=== PATIENT | female | born 1955 | race Caucasian/White ===

== ENCOUNTER 2017-05-31 17:39 | Inpatient (IN) ==
[2017-05-31] MEDS ORDERED: 0.9 % Sodium Chloride 250 ML ONE (19:49)
--- NOTE | 2017-05-31 19:57 | Internal Med History&Physical ---
<Flako Barbour - Last Filed: 05/31/17 23:44> Date of Encounter: 05/31/17 Time of Encounter: 19:52 Assessment and Plan (1) Atrial fibrillation with RVR Current visit: Yes Status: Acute The patient is in paroxysmal A. fib chronically. The patient is on Xarelto on a daily basis. Patient is in rapid ventricular rhythm upon arrival to the emergency department according to records as well as here in the ICU. Her heart rate is in the 150s to 120s. She is currently on a Cardizem drip at 5. We will continue to titrate accordingly with blood pressure control. The patient denies any chest pain or any other complaints associated with it. We will likely have cardiology see the patient for possible adjustment of medications. In addition we will schedule echocardiogram. We will continue the patient on Xarelto. (2) Sepsis Current visit: Yes Status: Acute Likely associated with right lower extremity cellulitis. The patient did have an elevated lactate at 3.4. She was administered at 3.5 L of normal saline at outlying facility. The patient was started on aztreonam as well as vancomycin which she will continue to receive here in the ICU. Qualifiers: Sepsis type: sepsis due to unspecified organism Qualified Code(s): A41.9 - Sepsis, unspecified organism (3) Cellulitis of right lower extremity Current visit: Yes Status: Acute The patient does have psoriasis history. This may be a contributor factor of why the patient developed cellulitis the right lower extremity. Despite patient being on Xarelto, we will schedule a right lower extremity Doppler for evaluation. (4) Acute exacerbation of CHF (congestive heart failure) Current visit: Yes Status: Acute Likely associated with patient's atrial fibrillation. The patient was given 3.5 L of normal saline outlying facility. Her respiratory status has remained stable upon arrival to [facility] ICU. We will continue to monitor this. We will schedule an echocardiogram to be performed to evaluate patient's EF. Qualifiers: Congestive heart failure type: unspecified Qualified Code(s): I50.9 - Heart failure, unspecified (5) COPD (chronic obstructive pulmonary disease) Current visit: Yes Status: Chronic Qualifiers: COPD type: unspecified COPD Qualified Code(s): J44.9 - Chronic obstructive pulmonary disease, unspecified (6) Asthma Current visit: Yes Status: Chronic Qualifiers: Asthma severity: unspecified severity Asthma persistence: unspecified Asthma complication type: uncomplicated Qualified Code(s): J45.909 - Unspecified asthma, uncomplicated (7) Obstructive sleep apnea Current visit: Yes Status: Chronic The patient wears CPAP at night intermittently. We will order for her here at [facility] ICU. (8) History of polycythemia Current visit: Yes Status: Chronic (9) HTN (hypertension) Current visit: Yes Status: Chronic Qualifiers: Hypertension type: essential hypertension Qualified Code(s): I10 - Essential (primary) hypertension Internal Medicine - H&P: HPI Chief complaint: Dyspnea, ill-feeling Admitted From: Hospital to Hospital Transfer Plans for Post Hospital Care: Home History of present illness: Ms. Leyva is a 61 year old female with past medical history of atrial fibrillation with a pacemaker due to episodes of bradycardia that her intermittent. The patient states that she has been experiencing upper respiratory like infection symptoms over the past 2 weeks. The patient was recently finished antibiotic for bilateral ear infections. The patient states that over the course of the past 24 hours she is began complaining of bilateral lower extremity pain and swelling associated with this dyspnea. In addition the patient was also noted to be complaining of lumbar back pain. The patient states that she has been experiencing the swelling over the course of the past 24-48 hours. She denies any difficulty breathing at this time but states that when she first decided to go to the emergency department she was feeling very short of breath. The patient denied any chest pain, abdominal pain. The patient has been taking her medications as prescribed to include Cardizem, metoprolol. The patient was worked up at [place] emergency department with concern for possible cellulitis of the right lower extremity as well as back pain and dyspnea. Lab work demonstrated an elevated BNP, heart rate was noted to be in atrial fibrillation with RVR. The patient was administered 2 boluses of 20 mg IV Cardizem and placed on a Cardizem drip at 5 mg. In addition the patient was given vancomycin and aztreonam for concern for cellulitis. The patient was also administered 3.5 L of IV fluids prior to arrival to [facility] ICU. The patient was evaluated at [place] and decided to be sent to the ICU with [facility]. The patient did have an elevated lactic acid of 3.4 and a BNP of 793. The patient is in no respiratory distress at this time. She is resting comfortably in the bed in answering all questions appropriately. The patient is complaining of some tightness in her chest associated with similar complaint of asthma that she has previously been diagnosed with. The patient also has an elevation of troponin at 0.04 per laboratory findings. CTA of the patient's chest demonstrated no pulmonary embolus. EKG from outlying facility revealed atrial fibrillation with RVR. No ST elevation or ST depression noted. Upon arrival to the ICU and the patient's heart rate is jumping from the 150s to the 1 teens. She was not on a Cardizem drip upon arrival to the emergency department. Patient denies any other complaints at this time. Past Med Surg Social Fam HX - Past Medical History Attestation: Yes The following information was validated with the patient. Source: patient, old records reviewed Medical history: arthritis, asthma, atrial fibrillation (Anticoagulation on xarelto), COPD, diabetes, hyperlipidemia, hypertension, other (Polycythemia, obstructive sleep apnea with CPAP, psoriasis, recurrent UTI, obesity) Psychiatric history: depression - Past Surgical History Surgical History: colostomy (For recurrent diverticular disease and diverticular abscess.), hysterectomy, pacemaker/AICD - Social History Smoking Status: Former smoker Smokeless Tobacco Status: No Alcohol use: none Drug use: none Internal Medicine - H&P: Meds Alendronate Sodium [Fosamax] 10 mg PO DAILY 07/07/15 [History] Diltiazem HCl [Diltiazem 24Hr ER] 240 mg PO DAILY 07/07/15 [History] Ergocalciferol (VITAMIN D2) [Vitamin D2 (50,000 UNIT)] 50,000 unit PO QWEEK [History] Hydrocodone/Acetaminophen [[place] 5-325 Tablet] 1 tab PO Q6HR PRN #20 tab [Rx] Metoprolol [Lopressor] 50 mg PO DAILY 07/07/15 [History] Rivaroxaban [Xarelto] 20 mg PO DAILY 07/07/15 [History] Cetirizine HCl [Zyrtec] 10 mg PO DAILY 05/31/17 [History] 3 Allergy/AdvReac Type Severity Reaction Status Date / Time Amoxicillin AdvReac Vomiting Verified 07/07/15 11:29 cephalexin [From Keflex] AdvReac Vomiting Verified 07/07/15 11:29 doxycycline AdvReac Vomiting Verified 07/07/15 11:29 Sulfa (Sulfonamide AdvReac Vomiting Verified 07/07/15 11:29 Antibiotics) All Systems PM: A 10-system review of systems was performed and is negative for pertinent findings except as documented above in the HPI. - Constitutional Constitutional: weakness, no chills, no fever(s), no night sweats - EENT Eyes: no change in vision, no discharge, no pain, no photophobia - Cardiovascular Cardiovascular ROS IM: dyspnea, dyspnea on exertion, edema, irregular heart rhythm, palpitations, no chest pain, no lightheadedness, no syncope - Respiratory Respiratory: dyspnea, no wheezing, no stridor, no pain on inspiration, no chest congestion, no pain with cough - Gastrointestinal Gastrointestinal: no abdominal pain, no diarrhea, no hematemesis, no hematochezia, no melena, no nausea, no vomiting - Musculoskeletal Musculoskeletal ROS IM: back pain, muscle cramps, muscle weakness, myalgias, no arthralgias, no joint swelling, no neck pain, no numbness, no tingling - Integumentary Integumentary IM: erythema - Neurological Neurological ROS: no confusion, no convulsions, no focal weakness, no numbness, no tingling, no tremor(s) - Constitutional General appearance: Present: A&O X 3, pleasant, no acute distress - Head Head exam: Present: atraumatic, normocephalic - Eye Eye exam: Present: PERRL, conjuntiva pink, sclera anicteric Pupils: Present: PERRL - Neck Neck exam general surgery: Present: supple, trachea midline. Absent: lymphadenopathy - Respiratory Respiratory exam: Present: CTAB. Absent: respiratory distress, rhonchi, wheezes , tachypnea - Cardiovascular Cardiovascular exam: Present: irregular rhythm, tachycardia - GI/Abdominal GI/Abdominal exam: Present: soft. Absent: distended, guarding, rebound, rigid, tenderness Additional comments: Patient has a left-sided colostomy intact. There is mild erythema surrounding the colostomy site without any obvious signs of infection. Nontender to palpation. Patient has stool in bag. - Extremities Exam Extremities exam: Present: full ROM, pedal edema, tenderness, warm. Absent: normal capillary refill, normal inspection, mottling Additional comments: Patient has chronic venous stasis of bilateral lower extremities with mild erythema of the right lower extremity and tenderness to palpation. Warm to the touch on palpation of the right lower extremity when compared to the left. No crepitus noted on palpation. - Neurological Exam Neurological exam: Present: CN II-XII intact, oriented X3, no focal deficits. Absent: pronater drift, facial droop, speech deficit Internal Med - H&P Results - Labs CBC & Chem 7: 05/31/17 21:58 - Attending Attestation I examined this patient and my medical decision-making was reviewed with the Resident Physician. I agree with the documented findings, disposition and treatment plan as described except to the extent set forth below. <Luis Lester - Last Filed: 06/01/17 06:06> Date of Encounter: 06/01/17 Internal Medicine - H&P: HPI History of present illness: Ms. Leyva is a 61 year old female All Systems PM: A 10-system review of systems was performed and is negative for pertinent findings except as documented above in the HPI. - Constitutional Vitals: Temp Pulse Resp BP Pulse Ox 97.7 F 118 18 104/96 91 06/01/17 04:51 06/01/17 05:00 06/01/17 05:00 06/01/17 05:00 06/01/17 05:00 Internal Med - H&P Results - Labs CBC & Chem 7: 06/01/17 03:49 06/01/17 03:49 Labs: Short CBC 06/01/17 Range/Units 03:49 WBC 24.6 H (4.3-11.1) K/mcL Hgb 15.0 D (11.5-15.4) g/dL Hct 45.8 H (35.3-44.9) % Plt Count 139 L (140-400) K/mcL Neutrophils # 20.8 H (1.6-8.9) K/mcL BMP 05/31/17 06/01/17 21:58 03:49 Sodium 138 Potassium 3.9 4.0 Chloride 112 H Carbon Dioxide 21 L BUN 15 Creatinine 0.79 Glucose 109 H Calcium 7.7 L Cardiac Enzymes 06/01/17 Range/Units 01:55 Troponin I 0.05 H* (< 0.04) ng/mL - ABG Interpretation ABG results: 05/31/17 06/01/17 22:11 04:03 VBG pH 7.33 7.40 VBG pCO2 35 L VBG pO2 116 H VBG HCO3 21 - Attending Attestation I have seen and examined pt independently, I have discussed with resident physician Dr Barbour regarding the management plan. Agree with the documentation. Pt has fever, leukocytosis, tachycardia, elevated lactate, LE cellulitis, consider severe sepsis caused by cellulitis. Pt said her BP is always at lower side. Will cont vanco and aztreonam for cellulitis and sepsis. Closely monitor pt in ICU. On cardizem drip for A Fib RVR. Will consult cardio and room cooler installer for further management. Critical care time 35 min for hx, chart review, physical, medical decision.
[2017-05-31] MEDS ORDERED: Aspirin 325 MG TABLET PO ONE (20:13)
[2017-05-31] MEDS ORDERED: Ipratropium/Albuterol Neb 3 ML IH PRN (20:20)
[2017-05-31 22:15] LABS: VBG Ionized Calcium 1.01 mmol/L (1.15-1.35); VBG PH 7.33 pH Units (7.32-7.42)
[2017-06-01] MEDS: Aztreonam 1,000 MG in Water for inj. (sterile) 20 ML 10 ML IVP SCH ×4 (00:21→23:41)
[2017-06-01 03:57] LABS: Lymphocytes % 9.2 %
[2017-06-01 03:58] LABS: Basophils # 0.1 K/mcL (0.0-0.2); Basophils % 0.4 %; Hematocrit 45.8 % (35.3-44.9); Immature Granulocytes % 1.4 % (0-4); Lymphocytes # 2.3 K/mcL (0.6-4.6); Mean Corpuscular HGB Conc 32.8 g/dL (31.6-35.5); Mean Corpuscular Hemoglobin 29.6 pg (28.0-33.3); Mean Corpuscular Volume 90.5 fL (83.0-100.0); Mean Platelet Volume 10.2 fL (9.4-12.4); Monocytes # 1.1 K/mcL (0.0-1.3); Monocytes % 4.4 %; Neutrophils # 20.8 K/mcL (1.6-8.9); Platelet Count 139 K/mcL (140-400); Red Blood Count 5.06 M/mcL (3.82-4.97); Red Cell Distribution Width 15.3 % (11.5-14.5); Segmented Neutrophils % 84.6 %
[2017-06-01 04:09] LABS: VBG HCO3 21 mEq/L (21-27); VBG Ionized Calcium 1.03 mmol/L (1.15-1.35); VBG PCO2 35 mmHg (41-51); VBG PO2 116 mmHg (25-50)
[2017-06-01 04:25] LABS: BUN/Creatinine Ratio 19 (6-26); Blood Urea Nitrogen 15 mg/dL (8-23); Carbon Dioxide 21 mEq/L (23-29); Chloride 112 mEq/L (98-107); Sodium 138 mEq/L (136-145)
[2017-06-01 04:26] LABS: Calcium 7.7 mg/dL (8.6-10.3); Glucose 109 mg/dL (70-105); Osmolality,Calculated 287 (280-300); Platelet Estimate Slight Decrease (Normal); eGFR For African Americans > 60 (> 60); eGFR For Non-African Americans > 60 (> 60)
[2017-06-01 04:28] LABS: Magnesium 1.7 mg/dL (1.6-2.6); Phosphorous 2.9 mg/dL (2.7-4.5)
[2017-06-01] MEDS ORDERED: *HR* Dextrose 50 % in Water (Syg) 50 ML SYRINGE IVP PRN (04:28)
[2017-06-01] MEDS ORDERED: Dextrose Gel 15 GM/37.5 ML TUBE PO PRN ×2 (04:28)
[2017-06-01] MEDS ORDERED: D5% in Water 1,000 ML IVC PRN (04:28)
[2017-06-01] MEDS: Insulin LISPRO 300 UNITS/3 ML VIAL SQ SCH ×4 (04:59→23:36)
[2017-06-01] MEDS ORDERED: Vancomycin 1,750 MG in D5% in Water 500 ML IVPB SCH (07:00)
[2017-06-01] MEDS ORDERED: Vancomycin 2,000 MG in D5% in Water 250 ML IVPB SCH (07:00)
--- NOTE | 2017-06-01 07:07 | Pulmonology Consult Note ---
<Teo Valerio - Last Filed: 06/01/17 15:31> Date of Encounter: 06/01/17 Time of Encounter: 07:07 Assessment and Plan (1) Sepsis Current Visit: No Status: Acute Likely etiology due to right lower extremity cellulitis Elevated lactic acid 2.4 and repeated down to 2.5 this morning Patient received 3.5 L of normal saline prior to admission Blood cultures pending We will continue IV antibiotics with vancomycin and aztreonam. Will consider switching to ceftriaxone with vancomycin tomorrow We will continue to monitor closely throughout the day. Qualifiers: Sepsis type: sepsis due to unspecified organism Qualified Code(s): A41.9 - Sepsis, unspecified organism (2) Acute exacerbation of CHF (congestive heart failure) Current Visit: Yes Status: Acute CXR and CTA showed clear lung millard and no pleural effusions. BNP 793 Denies any orthopnea or PND 1+ pitting edema Most recent ECHO 05/31/16 showed: - EF 45% - Mildly dilated LV, global LV systolic dysfunction, indeterminate diastolic function, atypical septal motion consistent with paced rhythm, moderate dilation of left atrium and right atrium - No significant valvular dysfunction Plan: Repeat echo pending Cardiology consulted - appreciate recommendations Patient is currently on beta carlo and will likely switch to long-acting. Further optimization could include addition of nikita inhibitor, aspirin, statin Qualifiers: Congestive heart failure type: systolic Qualified Code(s): I50.23 - Acute on chronic systolic (congestive) heart failure (3) Cellulitis of right lower extremity Current Visit: Yes Status: Acute Patient currently with 1-2+ pitting edema and erythema about bilateral lower extremities right greater than left We will continue current regimen with IV vancomycin and aztreonam Ordered CT with contrast of bilateral lower extremities - Results demonstrates lateral cellulitis versus lymphedema. No drainable fluid collections or subcutaneous gas present. Leukocytosis trending down with 32 down to 24.6 We will continue to trend (4) Atrial fibrillation with RVR Current Visit: Yes Status: Acute Patient has a known history of atrial fibrillation Taking Xarelto for anticoagulation with diltiazem 240 mg ER with metoprolol succinate 50 mg once a day for rate control Patient was placed on a Cardizem drip per cardiology recommendations on admission Heart rate in the 110s on telemetry this morning Blood pressure is stable Cardiology consulted - recommend switching Cardizem drip to amio drip at this time, no bolus due to lower blood pressure (5) COPD (chronic obstructive pulmonary disease) Current Visit: Yes Status: Chronic No evidence of acute COPD exacerbation Chest x-ray shows no acute process with stable cardiomegaly Restarted Symbicort DuoNeb's every 6hrs when necessary Sating well on room air Qualifiers: COPD type: unspecified COPD Qualified Code(s): J44.9 - Chronic obstructive pulmonary disease, unspecified (6) Obstructive sleep apnea Current Visit: Yes Status: Chronic Continue CPAP use at night, though patient has not been using recently due to her illness (7) HTN (hypertension) Current Visit: Yes Status: Chronic Stable at this time Home regimen: Toprol tartrate 50 daily with diltiazem 240 ER Patient is currently on a diltiazem drip for A. fib with RVR Blood pressure was on the low side this morning and will continue to hold by mouth meds for now See above Qualifiers: Hypertension type: essential hypertension Qualified Code(s): I10 - Essential (primary) hypertension (8) History of polycythemia Current Visit: Yes Status: Chronic Hemoglobin 15.0 and hematocrit 45.8. Appears to be stable this time. (9) Leukocytosis Current Visit: No Status: Acute WBC 32 down to 24.6 today See above for management We will continue to trend Qualifiers: Leukocytosis type: unspecified Qualified Code(s): D72.829 - Elevated white blood cell count, unspecified (10) T2DM (type 2 diabetes mellitus) Current Visit: Yes Status: Acute Blood sugars are controlled at this time Continue low-dose sliding scale for coverage Qualifiers: Diabetes mellitus complication status: with neurologic complications Diabetes mellitus complication detail: with polyneuropathy Diabetes mellitus residential insulin use: without residential use Qualified Code(s): E11.42 - Type 2 diabetes mellitus with diabetic polyneuropathy (11) DVT prophylaxis Current Visit: Yes Status: Acute Patient is currently on Xarelto History of Present Illness History of present illness: Ms. 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 The patient states that she has been experiencing upper respiratory like infection symptoms over the past 2 weeks. The patient was recently finished antibiotic for bilateral ear infections. The patient states that over the course of the past 24 hours she is began complaining of bilateral lower extremity pain and swelling associated with this dyspnea. In addition the patient was also noted to be complaining of lumbar back pain. The patient states that she has been experiencing the swelling over the course of the past 24-48 hours. She denies any difficulty breathing at this time but states that when she first decided to go to the emergency department she was feeling very short of breath. The patient denied any chest pain, abdominal pain. The patient has been taking her medications as prescribed to include Cardizem, metoprolol. The patient was first seen at [place] emergency department with concern for possible cellulitis of the right lower extremity as well as back pain and dyspnea. Lab work demonstrated an elevated BNP, heart rate was noted to be in atrial fibrillation with RVR. The patient was administered 2 boluses of 20 mg IV Cardizem and placed on a Cardizem drip at 5 mg. In addition the patient was given vancomycin and aztreonam for concern for cellulitis. The patient was also administered 3.5 L of IV fluids prior to arrival to [facility] ICU. Patient was ultimately admitted to [facility] for acute exacerbation of CHF, sepsis, A. fib with RVR and cellulitis of the right lower extremity. On arrival, initial labs demonstrate elevated lactic acid of 3.4 and trended down to 2.5. BNP of 793. Leukocytosis of 24.6 was noted a heart rate in the 150s to 170s. EKG demonstrates A. fib with RVR. Blood cultures sent. Continuation of vancomycin and aztreonam were administered. The patient is in no respiratory distress at this time but did complain of some chest tightness that is similar to her previous asthma exacerbations. In the presence of severe sepsis with her respiratory symptoms, pulmonary/critical care team was consulted for further evaluation. On evaluation, this morning she is resting, complained bed and answering all questions appropriate. She does have mild elevation of troponin of 0.04. Heart rate is back down to 120s. Chest x-ray demonstrates no acute abnormalities. Echocardiogram and CTA lower extremities have been ordered. Last known echo was performed on 06/06/16 and demonstrated an EF 45%, mildly dilated LV, global LV systolic dysfunction, indeterminate diastolic function, atypical septal motion consistent with paced rhythm. Cardiology was consulted for further recommendations. No new complaints at this time. Past Med Surg Social Fam HX - Past Medical History Medical history: arthritis, asthma, atrial fibrillation, COPD, diabetes, hyperlipidemia, hypertension, other Psychiatric history: depression - Past Surgical History Surgical History: colostomy, hysterectomy, pacemaker/AICD - Social History Smoking Status: Former smoker Smokeless Tobacco Status: No Alcohol use: none Drug use: none Medications and Allergies Alendronate Sodium [Fosamax] 10 mg PO DAILY 07/07/15 [History] Diltiazem HCl [Diltiazem 24Hr ER] 240 mg PO DAILY 07/07/15 [History] Ergocalciferol (VITAMIN D2) [Vitamin D2 (50,000 UNIT)] 50,000 unit PO QWEEK [History] Metoprolol [Lopressor] 50 mg PO DAILY 07/07/15 [History] Rivaroxaban [Xarelto] 20 mg PO DAILY 07/07/15 [History] Cetirizine HCl [Zyrtec] 10 mg PO DAILY 05/31/17 [History] Albuterol Sulfate [Ventolin Hfa] 2 puff IH Q4H 06/01/17 [History] BuPROPion XL (24 HR) [Wellbutrin XL] 150 mg PO DAILY 06/01/17 [History] Budesonide/Formoterol 160/4.5 [Symbicort 160/4.5] 2 puff IH BID 06/01/17 [ History] Dicyclomine [Bentyl] 10 mg PO QID 06/01/17 [History] Gabapentin [Neurontin] 1 cap PO TID 06/01/17 [History] Hydrocodone/Acetaminophen [[place] 5-325 Tablet] 1 tab PO BID PRN 06/01/17 [ History] Liraglutide [Victoza 2-Pedro] 0.6 mg IJ AD 06/01/17 [History] Montelukast [Singulair] 10 mg PO DAILY 06/01/17 [History] Omeprazole [PriLOSEC] 20 mg PO DAILY 06/01/17 [History] PARoxetine HCl [Paroxetine HCl] 20 mg PO DAILY 06/01/17 [History] Rivaroxaban [Xarelto] 20 mg PO DAILY 06/01/17 [History] Tizanidine HCl [Tizanidine HCl] 4 mg PO BID PRN 06/01/17 [History] 3 Allergy/AdvReac Type Severity Reaction Status Date / Time Amoxicillin AdvReac Vomiting Verified 07/07/15 11:29 cephalexin [From Keflex] AdvReac Vomiting Verified 07/07/15 11:29 doxycycline AdvReac Vomiting Verified 07/07/15 11:29 Sulfa (Sulfonamide AdvReac Vomiting Verified 07/07/15 11:29 Antibiotics) All Systems: A 10-system review of systems was performed and is negative for pertinent findings except as documented above in the HPI. Physical Examination Vital Signs: Vital Signs, Last 4 Hours Temp Pulse Resp BP Pulse Ox 06/01/17 06:00 130 16 99/71 92 06/01/17 05:00 118 18 104/96 91 06/01/17 04:51 97.7 F 06/01/17 04:00 122 18 91/30 90 General appearance: no acute distress Eyes: nonicteric ENT: oropharynx moist Neck: supple Effort: normal Inspection: normal Cardiovascular: irregular rhythm Gastrointestinal: normoactive bowel sounds, other (colostomy present) Integumentary: cellulitis (b/l LE) Extremities: pulses normal, edema (2+ pitting edema with erythema R>L) Musculoskeletal: no deformities normal mental status, non-focal exam mood appropriate, affect normal Results - Laboratory Findings CBC and BMP: 06/01/17 03:49 06/01/17 03:49 Abnormal lab findings: Abnormal lab results WBC 24.6 K/mcL (4.3-11.1) H 06/01/17 03:49 RBC 5.06 M/mcL (3.82-4.97) H 06/01/17 03:49 Hct 45.8 % (35.3-44.9) H 06/01/17 03:49 RDW 15.3 % (11.5-14.5) H 06/01/17 03:49 Plt Count 139 K/mcL (140-400) L 06/01/17 03:49 Neutrophils # 20.8 K/mcL (1.6-8.9) H 06/01/17 03:49 Platelet Estimate Slight Decrease (Normal) L 06/01/17 03:49 VBG pCO2 35 mmHg (41-51) L 06/01/17 04:03 VBG pO2 116 mmHg (25-50) H 06/01/17 04:03 Chloride 112 mEq/L (98-107) H 06/01/17 03:49 Carbon Dioxide 21 mEq/L (23-29) L 06/01/17 03:49 Glucose 109 mg/dL (70-105) H 06/01/17 03:49 Lactic Acid 2.5 mmol/L (0.5-2.2) H 05/31/17 21:58 Calcium 7.7 mg/dL (8.6-10.3) L 06/01/17 03:49 Venous Ioniz Calcium 1.03 mmol/L (1.15-1.35) L 06/01/17 04:03 Troponin I 0.05 ng/mL (< 0.04) H* 06/01/17 01:55 - Clinical Findings Intake & Output: Intake & Output 05/31/17 05/31/17 06/01/17 15:59 23:59 07:59 Intake Total 50 / 50 274 / 274 Output Total 100 / 100 Balance 50 / 50 174 / 174 Weight 127.4 kg 127.4 kg Consult Discharge Plan - Plan Referrals: Zara Jay [Primary Care Provider] - <Flaco Schaeffer - Last Filed: 06/01/17 21:40> Date of Encounter: 06/01/17 All Systems: A 10-system review of systems was performed and is negative for pertinent findings except as documented above in the HPI. Physical Examination Vital Signs: Vital Signs, Last 4 Hours Temp Pulse Resp BP Pulse Ox 06/01/17 18:26 130 21 103/78 94 06/01/17 17:35 126 20 114/89 93 06/01/17 17:20 28 93 06/01/17 16:30 122 21 98/64 96 06/01/17 15:50 97.8 F Results - Laboratory Findings CBC and BMP: 06/01/17 03:49 06/01/17 03:49 Abnormal lab findings: Abnormal lab results WBC 24.6 K/mcL (4.3-11.1) H 06/01/17 03:49 RBC 5.06 M/mcL (3.82-4.97) H 06/01/17 03:49 Hct 45.8 % (35.3-44.9) H 06/01/17 03:49 RDW 15.3 % (11.5-14.5) H 06/01/17 03:49 Plt Count 139 K/mcL (140-400) L 06/01/17 03:49 Neutrophils # 20.8 K/mcL (1.6-8.9) H 06/01/17 03:49 Platelet Estimate Slight Decrease (Normal) L 06/01/17 03:49 VBG pCO2 35 mmHg (41-51) L 06/01/17 04:03 VBG pO2 116 mmHg (25-50) H 06/01/17 04:03 Chloride 112 mEq/L (98-107) H 06/01/17 03:49 Carbon Dioxide 21 mEq/L (23-29) L 06/01/17 03:49 Glucose 109 mg/dL (70-105) H 06/01/17 03:49 Lactic Acid 2.5 mmol/L (0.5-2.2) H 05/31/17 21:58 Calcium 7.7 mg/dL (8.6-10.3) L 06/01/17 03:49 Venous Ioniz Calcium 1.03 mmol/L (1.15-1.35) L 06/01/17 04:03 Troponin I 0.04 ng/mL (< 0.04) H* 06/01/17 08:00 - Clinical Findings Intake & Output: Intake & Output 06/01/17 06/01/17 06/01/17 07:59 15:59 23:59 Intake Total 293 / 293 422 / 422 10 / 10 Output Total 100 / 100 650 / 650 Balance 193 / 193 -228 / -228 10 10 Weight 127.4 kg - Attending Attestation I examined this patient and my medical decision-making was reviewed with the Resident Physician. I agree with the documented findings, disposition and treatment plan as described except to the extent set forth below. Patient seen and examined. Labs, radiology, chart personally reviewed. Agree with resident's history and physical, assessment, plan with following comments: RN INFORMATICS: Patient follows commands, Pulmonary: Acceptable oxygenation and ventilation and treated her chronic lung disease/copd Cardiovascular: cardiology help appreciated GI: Nutrition per dietary and GI prophylaxis per routine Heme: DVT prophylaxis per routine ID: Continue antibiotics and plan to de-escalation. Will consider ID consult for her cellulitis. Renal; urine out put and renal funtion reviewed Endorcine: blood glucose is monitored Lines: all lines checked and no evidence of infections Skin: skin care to prevent pressure ulcers per nursing routine care
--- NOTE | 2017-06-01 09:16 | Cardiology Consult Note ---
<TroyrosalindTelly - Last Filed: 06/01/17 11:45> Date of Encounter: 06/01/17 Time of Encounter: 09:15 Assessment and Plan (1) Atrial fibrillation with RVR Current Visit: Yes Status: Acute Patient with known hx of a fib on xarelto for anticoagulation She is on 240mg Diltiazem ER and 50mg Metoprolol succinate for rate control. Likely pushed into RVR 2/2 to sepsis 2/2 cellulitis Currently on cardiazem drip. Patient still tachycardic. BP 129-81/96-30 over course of admission. trops 0.04, 0.05, 0.04 likely 2/2 demand ischemia 2/2 afib c rvr Plan: switch cardizem drip to amiodarone drip but do not do a bolus. restart home medications when able (2) Acute exacerbation of CHF (congestive heart failure) Current Visit: Yes Status: Acute BNP 793, patient denies SOB, no crackles on exam pedal exam present, but also has cellulitis present CXR and CTA showed clear lung millard and no pleural effusions. Prior ECHO 05/31/16 showed: LVEF Suboptimal image quality and AF makes LVEF interpretation difficult. Overall, LV function appears mildly reduced, LVEF 45%. Mildly dilated left ventricle. Global left ventricular systolic dysfunction. Indeterminate diastolic function. Atypical septal motion consistent with paced rhythm. Right ventricle was not well visualized. Moderately dilated left atrium. Moderately dilated right atrium. No evidence of pulmonary hypertension. RVSP was not well obtained. A device lead was visualized in the right atrium and right ventricle. No obvious significant valvular dysfunction. Plan: ECHO pending f/u results consider starting lisinopril once stable if EF remains reduced (3) Cellulitis of right lower extremity Current Visit: Yes Status: Acute Patient with Erythema, swelling pain BLE. Patient on vanc and aztreonam CT BLE ordered Plan: continue management per primary team. (4) COPD (chronic obstructive pulmonary disease) Current Visit: Yes Status: Chronic Pt with Hx of Chronic COPD on home symbicort, singulari, and albuterol not in acute exacerbation Plan: continue management per primary team (5) HTN (hypertension) Current Visit: Yes Status: Chronic Pt with hx of HTN only on metoprool tartrate 50 daily and Diltiazem 240ER patient well controlled to low on admission on diltiazem drip Plan: switched diltiazem to amiodarone drip continue to hold PO meds for now (6) Obstructive sleep apnea Current Visit: Yes Status: Chronic Pt with hx of LATIA on CPAP at night. per patient she hasn't been using CPAP lately due to URI sxs dry throat. Could be another reason patient went into a fib with RVR. Plan: encourage CPAP usage. treat underlying URI issues to increase compliance. (7) History of polycythemia Current Visit: Yes Status: Chronic Pt with Hx of Polycythemia Hgb 15 Hct 45.8 at baseline based on prior visits Plan: continue to monitor Discussion w patient/family: The assessment and plan as outlined above was discussed with the patient and/or family members who expressed understanding and agreement. All questions were answered. Thank you for involving us in the care of your patient. Please call with any questions. History of Present Illness Consult date: 05/31/17 Requesting physician: Flako Barbour Consult reason: "Afib with RVR, concern for CHF exacerbation" Chief complaint: BLE pain/swelling/erythema History of present illness: Ms. Leyva is a 61 year old female c PMHx of a fib (on xarelto for AC, Diltiazem 240 ER and metoprolol succinate 50mg for rate control), Pacemaker for bradycardia, COPD, HTN, HLD, DM, polycythemia, LATIA, Psoriasis, colostomy, hysterectomy who reported to the [place] ED c/o 2 days of BLE pain and swelling. Patient was found to be in a fib with RVR on the monitor. She was given 2 boluses of 20mg Cardiazem and then started on a cardizem drip and transferred to the [facility] ICU. Patient being worked up for BLE cellulitis. Patient started on Vanc and aztreonam. Trops have been 0.04, 0.05 thus far. LA 3.4 then 2.5. BNP 793. CTA performed which was negative for PE and showed clear lungs with no effusions. Patient denies Chest pain, SOB. Her only complaint besides her leg pain is a dry throat and cough. She is currently on Cardiazem Drip at 15. Still running in the 110s-130s. Past Med Surg Social Fam HX - Past Medical History Medical history: arthritis, asthma, atrial fibrillation, COPD, diabetes, hyperlipidemia, hypertension, other Psychiatric history: depression - Past Surgical History Surgical History: colostomy, hysterectomy, pacemaker/AICD - Social History Smoking Status: Former smoker Smokeless Tobacco Status: No Alcohol use: none Drug use: none Medications and Allergies Alendronate Sodium [Fosamax] 10 mg PO DAILY 07/07/15 [History] Diltiazem HCl [Diltiazem 24Hr ER] 240 mg PO DAILY 07/07/15 [History] Ergocalciferol (VITAMIN D2) [Vitamin D2 (50,000 UNIT)] 50,000 unit PO QWEEK [History] Metoprolol [Lopressor] 50 mg PO DAILY 07/07/15 [History] Rivaroxaban [Xarelto] 20 mg PO DAILY 07/07/15 [History] Cetirizine HCl [Zyrtec] 10 mg PO DAILY 05/31/17 [History] Albuterol Sulfate [Ventolin Hfa] 2 puff IH Q4H 06/01/17 [History] BuPROPion XL (24 HR) [Wellbutrin XL] 150 mg PO DAILY 06/01/17 [History] Budesonide/Formoterol 160/4.5 [Symbicort 160/4.5] 2 puff IH BID 06/01/17 [ History] Dicyclomine [Bentyl] 10 mg PO QID 06/01/17 [History] Gabapentin [Neurontin] 1 cap PO TID 06/01/17 [History] Hydrocodone/Acetaminophen [[place] 5-325 Tablet] 1 tab PO BID PRN 06/01/17 [ History] Liraglutide [Victoza 2-Pedro] 0.6 mg IJ AD 06/01/17 [History] Montelukast [Singulair] 10 mg PO DAILY 06/01/17 [History] Omeprazole [PriLOSEC] 20 mg PO DAILY 06/01/17 [History] PARoxetine HCl [Paroxetine HCl] 20 mg PO DAILY 06/01/17 [History] Rivaroxaban [Xarelto] 20 mg PO DAILY 06/01/17 [History] Tizanidine HCl [Tizanidine HCl] 4 mg PO BID PRN 06/01/17 [History] 3 Allergy/AdvReac Type Severity Reaction Status Date / Time Amoxicillin AdvReac Vomiting Verified 07/07/15 11:29 cephalexin [From Keflex] AdvReac Vomiting Verified 07/07/15 11:29 doxycycline AdvReac Vomiting Verified 07/07/15 11:29 Sulfa (Sulfonamide AdvReac Vomiting Verified 07/07/15 11:29 Antibiotics) All Systems Review: A 10-system review of systems was performed and is negative for pertinent findings except as documented above in the HPI. Physical Examination Vital Signs, Last 4 Hours Temp Pulse Resp BP Pulse Ox 06/01/17 08:37 98.2 F 06/01/17 08:22 128 22 94 06/01/17 07:30 135 21 105/79 95 06/01/17 06:00 130 16 99/71 92 General: Conversant, No Apparent Distress HEENT: Atraumatic, Normocephaly, Mucus Membranes Moist Cardiac: No Murmur, Other (irregularly irregular, tachycardic) Lungs: Other (Diffuse upper airway noise) Neuro: Alert and responsive, No focal deficits noted Abdomen: Soft, Non-Tender Skin: Other (erythema BLE) Musculoskeletal: No Chest Wall Tenderness Extremities: No Clubbing, No Cyanosis, Normal Pulses, Other (swelling BLE) Results 06/01/17 03:49 06/01/17 03:49 Lab Results 05/31/17 05/31/17 06/01/17 20:36 21:58 01:55 WBC Hgb Hct Plt Count Sodium Potassium 3.9 Chloride Carbon Dioxide BUN Creatinine Glucose Calcium Magnesium 1.3 L Troponin I 0.05 H* 06/01/17 06/01/17 06/01/17 03:49 03:49 03:49 WBC 24.6 H Hgb 15.0 D Hct 45.8 H Plt Count 139 L Sodium 138 Potassium 4.0 Chloride 112 H Carbon Dioxide 21 L BUN 15 Creatinine 0.79 Glucose 109 H Calcium 7.7 L Magnesium 1.7 Troponin I 06/01/17 08:00 WBC Hgb Hct Plt Count Sodium Potassium Chloride Carbon Dioxide BUN Creatinine Glucose Calcium Magnesium Troponin I 0.04 H* Consult Discharge Plan - Plan Referrals: Zara Jay [Primary Care Provider] - <Radha Orourke - Last Filed: 06/01/17 17:01> Date of Encounter: 06/01/17 - Attending Attestation I examined this patient and my medical decision-making was reviewed with the Resident Physician. I agree with the documented findings, disposition and treatment plan. Patient presented with sepsis in setting of RLE cellulitis complicated by AFIB RVR. Patient has known history of AFIB on metoprolol and diltiazem for rate control. Recommend stopping dilitazem drip and temporarily using amiodarone gtt for rate control. She is anticoagulated with xarelto. At the time of talking with the patient, the echo had not yet returned. The echo findings have now resulted demonstrated moderately reduced LVEF, 35% which is lower than previously reported. In May 2016, echo image quality was suboptimal but EF appeared to be around 45%. Given this information, will need to discuss consideration for LHC with the patient. Patient has multiple risk factors for CAD including obesity, postmenopausal status, hypertension, dyslipidemia and diabetes. Patient has been hemodynamically stable on room air with normal renal function. Will hold xarelto tonight in anticipation of this discussion tomorrow and consideration for catheterization. Assessment and Plan Discussion w patient/family: The assessment and plan as outlined above was discussed with the patient and/or family members who expressed understanding and agreement. All questions were answered. Thank you for involving us in the care of your patient. Please call with any questions. History of Present Illness History of present illness: Ms. Leyva is a 61 year old female All Systems Review: A 10-system review of systems was performed and is negative for pertinent findings except as documented above in the HPI. Physical Examination Vital Signs, Last 4 Hours Temp Pulse Resp BP Pulse Ox 06/01/17 15:50 97.8 F 06/01/17 14:30 131 22 100/88 97 06/01/17 13:30 113 23 120/82 96 Results 06/01/17 03:49 06/01/17 03:49 Lab Results 05/31/17 05/31/17 06/01/17 20:36 21:58 01:55 WBC Hgb Hct Plt Count Sodium Potassium 3.9 Chloride Carbon Dioxide BUN Creatinine Glucose Calcium Magnesium 1.3 L Troponin I 0.05 H* 06/01/17 06/01/17 06/01/17 03:49 03:49 03:49 WBC 24.6 H Hgb 15.0 D Hct 45.8 H Plt Count 139 L Sodium 138 Potassium 4.0 Chloride 112 H Carbon Dioxide 21 L BUN 15 Creatinine 0.79 Glucose 109 H Calcium 7.7 L Magnesium 1.7 Troponin I 06/01/17 08:00 WBC Hgb Hct Plt Count Sodium Potassium Chloride Carbon Dioxide BUN Creatinine Glucose Calcium Magnesium Troponin I 0.04 H*
[2017-06-01] MEDS ORDERED: Perflutren Lipid Microsphere 1.3 ML in 0.9 % Sodium Chloride 8.7 ML IVP ONE (09:46)
[2017-06-01] MEDS ORDERED: Ipratropium/Albuterol Neb 3 ML IH PRN (10:57)
[2017-06-01] MEDS ORDERED: Amiodarone Premix 360 MG/200 ML BAG IVC ONE (11:41)
[2017-06-01] MEDS: Budesonide/Formoterol 160/4.5 MDI IH SCH ×2 (12:09→20:09)
[2017-06-01] MEDS ORDERED: *HR* Rivaroxaban 10 MG TABLET PO SCH (17:00)
[2017-06-01] MEDS: Amiodarone Premix 360 MG/200 ML BAG IVC SCH (19:10)
[2017-06-01] MEDS: Ipratropium/Albuterol Neb 3 ML IH SCH (20:08)
[2017-06-01] MEDS: Vancomycin 1,250 MG in D5% in Water 250 ML IVPB SCH (20:27)
[2017-06-02] MEDS: Ipratropium/Albuterol Neb 3 ML IH SCH ×4 (01:46→12:06)
[2017-06-02 05:28] LABS: Basophils # 0.1 K/mcL (0.0-0.2); Basophils % 0.4 %; Eosinophils # 0.1 K/mcL (0.0-0.6); Eosinophils % 0.5 %; Hematocrit 46.6 % (35.3-44.9); Hemoglobin 14.7 g/dL (11.5-15.4); Immature Granulocytes % 0.5 % (0-4); Lymphocytes % 14.1 %; Mean Corpuscular HGB Conc 31.5 g/dL (31.6-35.5); Mean Corpuscular Hemoglobin 28.7 pg (28.0-33.3); Mean Platelet Volume 10.5 fL (9.4-12.4); Monocytes # 1.2 K/mcL (0.0-1.3); Monocytes % 8.1 %; Neutrophils # 10.9 K/mcL (1.6-8.9); Platelet Count 135 K/mcL (140-400); Red Blood Count 5.12 M/mcL (3.82-4.97); Red Cell Distribution Width 15.9 % (11.5-14.5); Segmented Neutrophils % 76.4 %
[2017-06-02 05:48] LABS: VBG PH 7.34 pH Units (7.32-7.42)
[2017-06-02 06:05] LABS: BUN/Creatinine Ratio 18 (6-26); Blood Urea Nitrogen 14 mg/dL (8-23); Calcium 8.5 mg/dL (8.6-10.3); Carbon Dioxide 26 mEq/L (23-29); Chloride 105 mEq/L (98-107); Glucose 159 mg/dL (70-105); Magnesium 1.9 mg/dL (1.6-2.6); Osmolality,Calculated 284 (280-300); Potassium 4.1 mEq/L (3.5-5.1); Sodium 135 mEq/L (136-145); eGFR For African Americans > 60 (> 60); eGFR For Non-African Americans > 60 (> 60)
[2017-06-02] MEDS: Amiodarone Premix 360 MG/200 ML BAG IVC SCH ×2 (06:21→16:02)
[2017-06-02] MEDS: Insulin LISPRO 300 UNITS/3 ML VIAL SQ SCH ×4 (06:28→23:55)
[2017-06-02] MEDS: Budesonide/Formoterol 160/4.5 MDI IH SCH ×2 (07:49→20:17)
--- NOTE | 2017-06-02 07:51 | Pulmonology Progress Note ---
<eTo Valerio - Last Filed: 06/02/17 11:40> Date of Encounter: 06/02/17 Time of Encounter: 07:49 Assessment and Plan (1) Sepsis Current Visit: No Status: Acute Likely etiology due to bilateral lower extremity cellulitis Elevated lactic acid 3.4 and repeated down to 2.5 this morning Patient received 3.5 L of normal saline prior to admission Blood cultures preliminary showing no growth We will continue IV antibiotics with vancomycin and ceftriaxone Patient will be transferred to [address] [place] [address] Qualifiers: Sepsis type: sepsis due to unspecified organism Qualified Code(s): A41.9 - Sepsis, unspecified organism (2) Acute exacerbation of CHF (congestive heart failure) Current Visit: Yes Status: Acute CXR and CTA showed clear lung millard and no pleural effusions. BNP 793 Denies any orthopnea or PND 1+ pitting edema ECHO 06/01/16 showed: - EF 35%, mildly dilated LV, global LV systolic dysfunction, indeterminate diastolic function, atypical septal motion consistent with paced rhythm, severely dilation of left atrium and right atrium, no significant valvular dysfunction Plan: Cardiology consulted - recommend [facility] today NPO this morning Patient is currently on beta carlo and will likely switch to long-acting. Further optimization could include addition of nikita inhibitor, aspirin, statin Qualifiers: Congestive heart failure type: systolic Qualified Code(s): I50.23 - Acute on chronic systolic (congestive) heart failure (3) Cellulitis of right lower extremity Current Visit: Yes Status: Acute Patient currently with 1-2+ pitting edema and erythema about bilateral lower extremities right greater than left Pain has improved since yesterday CT with contrast the bilateral lower extremities done initiated bilateral cellulitis versus lipedema or there is no drainable fluid collection or subcutaneous cutaneous gas present. Leukocytosis trending down with 32 down to 24 to 14.3 Plan: Continue current regimen with IV vancomycin Switched Aztreonam to ceftriaxone (4) Atrial fibrillation with RVR Current Visit: Yes Status: Acute Patient has a known history of atrial fibrillation Home regimen: Taking Xarelto for anticoagulation with diltiazem 240 mg ER with metoprolol succinate 50 mg once a day for rate control Patient was placed on a Cardizem drip per cardiology recommendations on admission Blood pressure is stable Cardiology consulted - recommend switching Cardizem drip to amio drip at this time, no bolus Heart rate this morning is unchanged with A. fib and RVR present in the 120s (5) COPD (chronic obstructive pulmonary disease) Current Visit: Yes Status: Chronic No evidence of acute COPD exacerbation Chest x-ray shows no acute process with stable cardiomegaly Restarted Symbicort DuoNeb's every 6hrs ANA Sating well on room air Qualifiers: COPD type: unspecified COPD Qualified Code(s): J44.9 - Chronic obstructive pulmonary disease, unspecified (6) Obstructive sleep apnea Current Visit: Yes Status: Chronic Encouraged use of CPAP use at night Possible etiology of worsening atrial fibrillation (7) HTN (hypertension) Current Visit: Yes Status: Chronic Home regimen: Toprol tartrate 50 daily with diltiazem 240 ER Patient is currently on a amio drip for A. fib with RVR Blood pressure stable at this time and will continue to hold by mouth meds Qualifiers: Hypertension type: essential hypertension Qualified Code(s): I10 - Essential (primary) hypertension (8) History of polycythemia Current Visit: Yes Status: Chronic Chronic issue Stable hgb 14.7 and hematocrit 46.6 (9) Leukocytosis Current Visit: No Status: Acute Resolving 24.6 down to 14.3 Continued IV antibiotics We will continue to trend Qualifiers: Leukocytosis type: unspecified Qualified Code(s): D72.829 - Elevated white blood cell count, unspecified (10) T2DM (type 2 diabetes mellitus) Current Visit: Yes Status: Acute Blood sugars are stable Low-dose sliding scale for coverage Qualifiers: Diabetes mellitus complication status: with neurologic complications Diabetes mellitus complication detail: with polyneuropathy Diabetes mellitus longterm insulin use: without food tester use Qualified Code(s): E11.42 - Type 2 diabetes mellitus with diabetic polyneuropathy (11) DVT prophylaxis Current Visit: Yes Status: Acute Holding Xarelto for possible left heart cath today Subjective Interval history: Patient was admitted for acute exacerbation of CHF, sepsis, A. fib with RVR and cellulitis of bilateral lower extremities Patient is resting comfortably this morning in bed Patient reports no overnight events Patient has noted complaints at this time She does report palpitations and lower extremity pain that is unchanged from yesterday. Denies any chest pain, nausea, vomiting, abdominal pain or GI issues. Objective PUL Vital signs: Last Vital Signs Temp 98.6 F 06/02/17 04:00 Pulse 121 06/02/17 06:00 Resp 22 06/02/17 06:00 BP 100/72 06/02/17 06:00 Pulse Ox 94 06/02/17 06:00 General appearance: no acute distress Eyes: nonicteric ENT: oropharynx moist Neck: supple Effort: normal Auscultation: bilateral: rales Cardiovascular: irregular rhythm (A. fib) Gastrointestinal: normoactive bowel sounds, non-distended Integumentary: erythema (Bilateral lower extremities), cellulitis (Bilateral lower extremities) Extremities: pulses normal, no ischemia or petechiae, edema Musculoskeletal: no deformities normal mental status, non-focal exam mood appropriate, affect normal Results - Laboratory Findings CBC and BMP: 06/02/17 05:02 06/02/17 05:02 Abnormal lab findings: Abnormal lab results WBC 14.3 K/mcL (4.3-11.1) H 06/02/17 05:02 RBC 5.12 M/mcL (3.82-4.97) H 06/02/17 05:02 Hct 46.6 % (35.3-44.9) H 06/02/17 05:02 MCHC 31.5 g/dL (31.6-35.5) L 06/02/17 05:02 RDW 15.9 % (11.5-14.5) H 06/02/17 05:02 Plt Count 135 K/mcL (140-400) L 06/02/17 05:02 Neutrophils # 10.9 K/mcL (1.6-8.9) H 06/02/17 05:02 Platelet Estimate Slight Decrease (Normal) L 06/01/17 03:49 VBG pCO2 35 mmHg (41-51) L 06/01/17 04:03 VBG pO2 116 mmHg (25-50) H 06/01/17 04:03 Sodium 135 mEq/L (136-145) L 06/02/17 05:02 Glucose 159 mg/dL (70-105) H 06/02/17 05:02 POC Glucose 128 (58-89) H 06/01/17 23:34 Lactic Acid 2.5 mmol/L (0.5-2.2) H 05/31/17 21:58 Calcium 8.5 mg/dL (8.6-10.3) L 06/02/17 05:02 Venous Ioniz Calcium 1.10 mmol/L (1.15-1.35) L 06/02/17 05:42 Troponin I 0.04 ng/mL (< 0.04) H* 06/01/17 08:00 - Microbiology Findings Microbiology Findings: Microbiology, Last 48 Hours 06/01/17 09:05 Blood Culture - Preliminary Peripheral Venipuncture No growth. 06/01/17 09:00 Blood Culture - Preliminary Peripheral Venipuncture No growth. - Clinical Findings Intake & Output: Intake & Output 06/01/17 06/01/17 06/02/17 15:59 23:59 07:59 Intake Total 422 / 422 270 / 270 440 / 440 Output Total 650 / 650 700 / 700 575 / 575 Balance -228 / -228 -430 / -430 -135 / -135 Consult Discharge Plan - Plan Referrals: Radha Salgado [employer]OL [employer] D[employer]LL PRESS SET UP OPERATOR [Advanced Practice Nurse] - 06/15/17 10:00 am <Flaco Schaeffer - Last Filed: 06/02/17 15:57> Date of Encounter: 06/02/17 Objective PUL Vital signs: Last Vital Signs Temp 98.2 F 06/02/17 11:08 Pulse 151 06/02/17 11:08 Resp 18 06/02/17 11:08 BP 94/66 06/02/17 11:08 Pulse Ox 94 06/02/17 11:08 Results - Laboratory Findings CBC and BMP: 06/02/17 05:02 06/02/17 05:02 Abnormal lab findings: Abnormal lab results WBC 14.3 K/mcL (4.3-11.1) H 06/02/17 05:02 RBC 5.12 M/mcL (3.82-4.97) H 06/02/17 05:02 Hct 46.6 % (35.3-44.9) H 06/02/17 05:02 MCHC 31.5 g/dL (31.6-35.5) L 06/02/17 05:02 RDW 15.9 % (11.5-14.5) H 06/02/17 05:02 Plt Count 135 K/mcL (140-400) L 06/02/17 05:02 Neutrophils # 10.9 K/mcL (1.6-8.9) H 06/02/17 05:02 Platelet Estimate Slight Decrease (Normal) L 06/01/17 03:49 VBG pCO2 35 mmHg (41-51) L 06/01/17 04:03 VBG pO2 116 mmHg (25-50) H 06/01/17 04:03 Sodium 135 mEq/L (136-145) L 06/02/17 05:02 Glucose 159 mg/dL (70-105) H 06/02/17 05:02 POC Glucose 128 (58-89) H 06/01/17 23:34 Lactic Acid 2.5 mmol/L (0.5-2.2) H 05/31/17 21:58 Calcium 8.5 mg/dL (8.6-10.3) L 06/02/17 05:02 Venous Ioniz Calcium 1.10 mmol/L (1.15-1.35) L 06/02/17 05:42 Troponin I 0.04 ng/mL (< 0.04) H* 06/01/17 08:00 Stool Occult Blood Positive (Negative) A 06/02/17 13:30 - Microbiology Findings Microbiology Findings: Microbiology, Last 48 Hours 06/01/17 09:05 Blood Culture - Preliminary Peripheral Venipuncture No growth. 06/01/17 09:00 Blood Culture - Preliminary Peripheral Venipuncture No growth. - Clinical Findings Intake & Output: Intake & Output 06/01/17 06/02/17 06/02/17 23:59 07:59 15:59 Intake Total 270 / 270 440 / 440 Output Total 700 / 700 575 / 575 250 / 250 Balance -430 / -430 -135 / -135 -250 / -250 - Attending Attestation I examined this patient and my medical decision-making was reviewed with the Resident Physician. I agree with the documented findings, disposition and treatment plan as described except to the extent set forth below. Patient seen and examined. Labs, radiology, chart personally reviewed. 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 GI: Nutrition per dietary and GI prophylaxis per routine Heme: DVT prophylaxis per routine ID: Continue antibiotics and plan to de-escalation. Infectious disease consultation will be considered Renal; urine out put and renal funtion reviewed Endorcine: blood glucose is monitored Lines: all lines checked and no evidence of infections Skin: skin care to prevent pressure ulcers per nursing routine care Patient is hemodynamically stable to be transferred to the floor
[2017-06-02] MEDS: cefTRIAXone 2,000 MG in Water for inj. (sterile) 20 ML IVP SCH (08:32)
[2017-06-02] MEDS: Ondansetron 4 MG/2 ML VIAL IVP PRN ×2 (08:32→13:08)
[2017-06-02] MEDS: Vancomycin 1,250 MG in D5% in Water 250 ML IVPB SCH ×2 (08:38→20:48)
--- NOTE | 2017-06-02 09:49 | Cardiology Progress Note ---
<Kalli Thomson - Last Filed: 06/02/17 16:01> Date of Encounter: 06/02/17 Time of Encounter: 09:39 Assessment and Plan (1) Atrial fibrillation with RVR Current Visit: Yes Status: Acute Patient with known hx of a fib on xarelto for anticoagulation She is on 240mg Diltiazem ER and 50mg Metoprolol succinate for rate control. Likely pushed into RVR 2/2 to sepsis 2/2 cellulitis Currently on amiodarine drip (changed 06/01/2017 from cardizem drip). Patient still tachycardic. BP 129-81/96-30 over course of admission. trops 0.04, 0.05, 0.04 likely 2/2 demand ischemia 2/2 afib c rvr Plan: -Amiodarone drip started 06/01/2017. Additional bolus given today 06/02/2017. -BP has been borderline low. Will do a digoxin load 1 gram over 24 hours for tachycardia. -Dopplers of bilateral lower extremities -continue to hold xarelto for potential LHC -Unable to obtain medical records from PCP Jay as office closed. Ordered stat hemoccult. -Positive stat hemoccult, GI consulted, unable to see patient until Monday. Consult to surgery. (2) Acute exacerbation of CHF (congestive heart failure) Current Visit: Yes Status: Acute BNP 793, patient denies SOB, no crackles on exam pedal exam present, but also has cellulitis present CXR and CTA showed clear lung millard and no pleural effusions. Prior echocardiogram 05/31/16:LVEF 45%, mildly dilated left ventricle, global global left ventricular systolic dysfunction, indeterminate diastolic function, atypical septal wall motion consistent with paced rhythm, right ventricle was not well visualized. Moderately dilated left and right atria. No evidence of pulmonary hypertension. A device lead visualized in the right atrium and right ventricle. No obvious significant valvular dysfunction. Echo 06/01/2017 on current admission: LVEF 35%, moderately dilated left ventricle , global left ventricular systolic dysfunction, atypical septal motion consistent with patient rhythm, indeterminate diastolic function. Grossly, the right ventricle appears dilated, severely dilated left atrium, severely dilated right atrium. No evidence of pulmonary hypertension and no obvious significant valvular dysfunction. LVEF appears reduced compared to prior reports. Plan: Awaiting hemoccult testing as unable to obtain medical records from PCP regarding GI blood. If testing is negative, will take patient for LHC tomorrow. If positive, will consult GI. -Hemoccult positive, will consult GI/surgery. -hold xarelto -start JUDE-I after LHC if kidney function ok. -Hold on ASA until GI/surgery work-up complete -Hold BB secondary to borderline BP -FU lipid panel Qualifiers: Congestive heart failure type: systolic Qualified Code(s): I50.23 - Acute on chronic systolic (congestive) heart failure (3) Cellulitis of right lower extremity Current Visit: Yes Status: Acute Patient with Erythema, swelling pain BLE. WBC trending downwards. Antibiotics descalated to vancomycin and ceftriaxone. CT BLE ordered Plan: continue management per primary team. (4) HTN (hypertension) Current Visit: Yes Status: Chronic Pt with hx of HTN -On metoprool tartrate 50 daily and Diltiazem 240ER at home Plan: -switched diltiazem to amiodarone drip -continue management per primary team Qualifiers: Hypertension type: essential hypertension Qualified Code(s): I10 - Essential (primary) hypertension (5) COPD (chronic obstructive pulmonary disease) Current Visit: Yes Status: Chronic Pt with Hx of Chronic COPD on home symbicort, singular, and albuterol Plan: continue management per primary team Qualifiers: COPD type: unspecified COPD Qualified Code(s): J44.9 - Chronic obstructive pulmonary disease, unspecified (6) Obstructive sleep apnea Current Visit: Yes Status: Chronic Pt with hx of LATIA on CPAP at night. -per patient she hasn't been using CPAP lately due to URI sxs dry throat. -Could be another reason patient went into a fib with RVR. Plan: -encourage CPAP usage. -treat underlying URI issues to increase compliance. Discussion w patient/family: The assessment and plan as outlined above was discussed with the patient and/or family members who expressed understanding and agreement. All questions were answered. Thank you for involving us in the care of your patient. Please call with any questions. Subjective Principal diagnosis: BLE cellulitis, CHF exacerbation Interval history: Ms. Leyva is a 61 yo female with PMHx of atrial fibrillation (on xarelto for AC , diltiazem 240 ER and metoprolol succinate 50mg for rate control), pacemaker for bradycardia, COPD, HTN, HLD, DM, polycythemia, LATIA, psoriasis, colostomy, and hysterectomy who initially presented to [facility] [facility] on 06/01/2017 for BLE pain and swelling. Cardiology was consulted as patient was found to be in afib with RVR. Patient has amiodarone drip running currently. Heart rate consistently tachycardic. She is resting comfortably. No complaints of chest pain, pressure or radiation. She denies nausea or diaphoresis. She has been kept NPO. Patient does report seeing flecks of blood in her colostomy bag. Her PCP Jay testing this for the presence of blood. Patient reports "positive" result. Objective Vital Signs, Last 4 Hours Temp Pulse Resp BP Pulse Ox 06/02/17 08:29 97.4 F L 06/02/17 08:15 98.6 F 130 18 115/78 94 06/02/17 08:00 130 06/02/17 07:52 18 93 06/02/17 07:00 130 18 97/61 97 06/02/17 06:00 121 22 100/72 94 General: Conversant, No Apparent Distress HEENT: Atraumatic, Normocephaly, Mucus Membranes Moist Cardiac: Other (Tachycardia, irregular) Lungs: Normal Breath Sounds, Other (Rhonchi noted bilaterally) Neuro: Alert and responsive Abdomen: Soft, Non-Tender Skin: No rashes noted on visualized skin Extremities: No Clubbing, Other (Edema, 2+) Results 06/02/17 05:02 06/02/17 05:02 Lab Results 06/02/17 06/02/17 05:02 05:02 WBC 14.3 H Hgb 14.7 Hct 46.6 H Plt Count 135 L Sodium 135 L Potassium 4.1 Chloride 105 Carbon Dioxide 26 BUN 14 Creatinine 0.80 Glucose 159 H Calcium 8.5 L Magnesium 1.9 Consult Discharge Plan - Plan Referrals: Radha Salgado CNP [Advanced Practice Nurse] - 06/15/17 10:00 am <Radha Orourke - Last Filed: 06/03/17 16:29> Date of Encounter: 06/03/17 Assessment and Plan Discussion w patient/family: I examined this patient and my medical decision-making was reviewed with the Resident Physician. I agree with the documented findings, disposition and treatment plan. 1. Systolic heart failure: Ms. Leyva reported having "specks of blood" in her colostomy. We have recommended hemoccult testing before proceeding with [facility]. Xarelto is on hold. 2. Atrial fibrillation with RVR: Continue amiodarone gtt. Xarelto being held. Doppler of LE negative. Objective Vital Signs, Last 4 Hours Pulse BP 06/03/17 15:00 89 114/84 06/03/17 14:00 101 105/77 06/03/17 13:00 86 115/89 Results 06/03/17 03:35 06/03/17 03:35 Lab Results 06/03/17 06/03/17 06/03/17 03:35 03:35 03:35 WBC 13.9 H Hgb 14.9 Hct 46.4 H Plt Count 121 L Sodium 132 L Potassium 4.2 Chloride 104 Carbon Dioxide 26 BUN 15 Creatinine 0.63 Glucose 113 H Calcium 8.7 Magnesium 1.8
[2017-06-02] MEDS ORDERED: Ipratropium/Albuterol Neb 3 ML IH PRN (12:21)
[2017-06-02] MEDS ORDERED: Amiodarone Premix 150 MG/100 ML BAG IVPB ONE (15:22)
[2017-06-02] MEDS ORDERED: *HR* Digoxin 0.5 MG/2 ML AMPUL IVP ONE ×2 (16:15→22:00)
--- NOTE | 2017-06-02 16:35 | Event Note ---
Date of Encounter: 06/02/17 Time of Encounter: 16:20 Surgery was consulted d/t possible need for scope prior to left heart cath in the setting of hemoccult positive colostomy. Matt has a surgical history of a diverting colostomy and previously followed with Dr. Rollins and has also seen Dr. Cedeño in wound care. Pt states she has a non -healing and recurrent wound around her stoma. She reports a recent "flare" of this after she did not go to her wound care appointment and that the flecks of blood she reported were related to this. She denies any changes in her ostomy output, bloody ouptut, vomiting blood or coffee ground emesis. Her hgb is 14.7. At this time, there is no indication to delay left heart cath or cardiovascular procedures for endoscopy. Surgery will sign off at this time. If there is any further concern for bleeding or question, please reconsult surgery. Pt is advised if she has any further questions or concerns regarding her ostomy or wounds she can follow up in the office with Dr. Rollins or Dr. Cedeño respectively.
[2017-06-03 03:49] LABS: Basophils % 0.3 %; Eosinophils % 0.2 %; Hematocrit 46.4 % (35.3-44.9); Hemoglobin 14.9 g/dL (11.5-15.4); Immature Granulocytes % 0.6 % (0-4); Lymphocytes # 1.4 K/mcL (0.6-4.6); Mean Corpuscular HGB Conc 32.1 g/dL (31.6-35.5); Mean Corpuscular Hemoglobin 29.2 pg (28.0-33.3); Mean Corpuscular Volume 90.8 fL (83.0-100.0); Mean Platelet Volume 10.8 fL (9.4-12.4); Monocytes # 1.2 K/mcL (0.0-1.3); Monocytes % 8.8 %; Neutrophils # 11.2 K/mcL (1.6-8.9); Platelet Count 121 K/mcL (140-400); Red Blood Count 5.11 M/mcL (3.82-4.97); Red Cell Distribution Width 15.7 % (11.5-14.5); Segmented Neutrophils % 80.1 %
[2017-06-03 03:58] LABS: VBG Ionized Calcium 1.14 mmol/L (1.15-1.35); VBG PH 7.33 pH Units (7.32-7.42)
[2017-06-03] MEDS ORDERED: *HR* Digoxin 0.5 MG/2 ML AMPUL IVP ONE (04:00)
[2017-06-03] MEDS: Amiodarone Premix 360 MG/200 ML BAG IVC SCH (04:08)
[2017-06-03 04:12] LABS: BUN/Creatinine Ratio 24 (6-26); Blood Urea Nitrogen 15 mg/dL (8-23); Calcium 8.7 mg/dL (8.6-10.3); Carbon Dioxide 26 mEq/L (23-29); Chloride 104 mEq/L (98-107); Glucose 113 mg/dL (70-105); Osmolality,Calculated 276 (280-300); Potassium 4.2 mEq/L (3.5-5.1); Sodium 132 mEq/L (136-145); eGFR For African Americans > 60 (> 60); eGFR For Non-African Americans > 60 (> 60)
[2017-06-03 04:13] LABS: Chol/HDL Ratio 14.6 (0-4.9); Magnesium 1.8 mg/dL (1.6-2.6); Phosphorous 2.5 mg/dL (2.7-4.5)
[2017-06-03] MEDS: Insulin LISPRO 300 UNITS/3 ML VIAL SQ SCH ×4 (05:53→21:36)
[2017-06-03] MEDS: Vancomycin 1,250 MG in D5% in Water 250 ML IVPB SCH ×2 (08:47→22:07)
[2017-06-03] MEDS: cefTRIAXone 2,000 MG in Water for inj. (sterile) 20 ML IVP SCH (09:00)
[2017-06-03] MEDS: Budesonide/Formoterol 160/4.5 MDI IH SCH ×2 (10:25→20:19)
--- NOTE | 2017-06-03 10:36 | Event Note ---
Date of Encounter: 06/03/17 Time of Encounter: 09:00 - Cardiology Event Note Spoke with patient at the bedside prior to proceding with [facility]. The R/B/A of the procedure had been discussed with the patient previously. I readdressed any questions with the patient and her family. She understands the potential risks. She agrees to proceed. Renal function remains normal.
[2017-06-03] MEDS ORDERED: Heparin 1,000 UNITS/500 mL 500 ML ONE (11:07)
[2017-06-03] MEDS ORDERED: 0.9 % Sodium Chloride 1,000 ML ONE ×2 (11:07→14:07)
[2017-06-03] MEDS ORDERED: *HR* Heparin 10,000 UNIT/10 ML VIAL ONE (11:07)
[2017-06-03] MEDS ORDERED: Nitroglycerin 1,000 MCG/10 ML VIAL IV ONE ×2 (11:07→13:37)
--- NOTE | 2017-06-03 11:17 | Internal Med Progress Note ---
Date of Encounter: 06/03/17 Time of Encounter: 11:15 - Assessment and plan (1) Atrial fibrillation with RVR Current Visit: Yes Status: Acute Assessment and plan: Patient with atrial fibrillation with rapid ventricular rate. Was treated initially in ICU with Cardizem infusion and started on beta blockers without significant control and now she is on admit her inpatient cardiology following. (2) Acute exacerbation of CHF (congestive heart failure) Current Visit: Yes Status: Acute Assessment and plan: He has decompensated congestive heart failure which likely precipitated by her atrial fibrillation with rapid antegrade. She is on IV diuretics. Her ejection fraction is lower than before from 45-35% from echocardiogram cardiology is planning to do left heart catheter today. Qualifiers: Congestive heart failure type: systolic Qualified Code(s): I50.23 - Acute on chronic systolic (congestive) heart failure (3) Cellulitis of right lower extremity Current Visit: Yes Status: Acute Assessment and plan: Her erythema of the right leg is improving she still has some warmth. There is swelling compared to the left leg but better than before. (4) Obstructive sleep apnea Current Visit: Yes Status: Chronic Assessment and plan: Although she was known to have obstructive sleep apnea she has not been using CPAP. Strongly advised to have reevaluation for her sleep apnea and to comply with CPAP. (5) T2DM (type 2 diabetes mellitus) Current Visit: Yes Status: Acute Assessment and plan: Her blood sugar has been monitored and dictated with sliding scale insulin. 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 Multiple other comorbidities. She was transferred from ICU on 06/02/17. She is waiting for a heart catheter today. Son amiodarone infusion for atrial fibrillation control she was on Cardizem infusion without any adequate control. She had elevated troponin up to 0.04/0.05 which is likely due to demand ischemia. Her echocardiogram on 06/01/17 revealed them if of 35% with moderately dilated left ventricle with global left ventricle systolic dysfunction with ejection fraction seemed to be decreased from before which was 45%. She is planned to have left heart catheter today. She continued to have shortness of breath and cough. Has leg swelling. But right leg redness appears improving. - Constitutional Vitals: Temp Pulse Resp BP Pulse Ox 97.9 F 118 18 95/87 95 06/03/17 07:04 06/03/17 07:04 06/03/17 10:27 06/03/17 07:04 06/03/17 10:27 General appearance: Present: A&O X 3, pleasant, no acute distress Exam: Mobile obese female. Has dyspnea and orthopnea at rest. She is on oxygen. Has pallor. No cyanosis or jaundice. Neck has elevated JVD. No cervical lymphadenopathy. CVS S1-S2 irregularly irregular. Could not appreciate murmur. Respiratory system decreased and a bilaterally with bilateral crackles/rhonchi. Abdomen very obese limited exam no significant tenderness. Has ileostomy Extremities has bilateral leg edema. Has erythema of both legs right more than left. Improving. 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 Internal Medicine: Result - Labs CBC & Chem 7: 06/03/17 03:35 06/03/17 03:35 Labs: Short CBC 06/03/17 Range/Units 03:35 WBC 13.9 H (4.3-11.1) K/mcL Hgb 14.9 (11.5-15.4) g/dL Hct 46.4 H (35.3-44.9) % Plt Count 121 L (140-400) K/mcL Neutrophils # 11.2 H (1.6-8.9) K/mcL BMP 06/03/17 03:35 Sodium 132 L Potassium 4.2 Chloride 104 Carbon Dioxide 26 BUN 15 Creatinine 0.63 Glucose 113 H Calcium 8.7 Consult Discharge Plan - Plan Referrals: Radha Salgado CNP [Advanced Practice Nurse] - 06/15/17 10:00 am
[2017-06-03] MEDS ORDERED: Verapamil 5 MG/2 ML VIAL ONE (13:37)
[2017-06-03] MEDS ORDERED: *HR* Midazolam HCl 2 MG/2 ML VIAL ONE (14:06)
[2017-06-03] MEDS ORDERED: *HR* FentaNYL (PF) 100 MCG/2 ML VIAL ONE (14:07)
--- NOTE | 2017-06-03 14:09 | Pre-Sedation Evaluation ---
Pre-sedation evaluation - Pre-sedation checklist Date of procedure: 06/03/17 Procedure: heart cath Recent Vitals: Last Vital Signs Temp 97.9 F 06/03/17 07:04 Pulse 85 06/03/17 12:13 Resp 18 06/03/17 12:13 BP 115/98 06/03/17 12:13 Pulse Ox 96 06/03/17 12:13 H&P (including ROS) documented in medical record: Yes (see) Dietary Status: NPO after Midnight Airway Assessment: Patient can open mouth completely, TMJ function normal Dentition: No loose teeth or bridges Possible difficult airway: No ASA Classification *see protocol: CLASS III-Severe systemic disease Plan of Care: Pt appropriate candidate for procedure/moderate/conscious sedation
--- NOTE | 2017-06-03 14:30 | Procedure Note ---
Date of procedure: 06/03/17 Pre-op diagnosis: CMP Post-op diagnosis: same Procedure: left cath radially Anesthesia: local Surgeon: Yaya Beverly Was there an hr assistant present: No Estimated blood loss (cc): 10 Specimen: none Pathology: none sent Condition: stable Disposition: floor
--- NOTE | 2017-06-03 14:43 | Invasive Diagnostic Lab Proc ---
Name: Matt Leyva Date of Study: 06/03/2017 Date: 1955 Ht: 63.0in Medical Record#: [id number] Age: 61 Wt: 282.19lb Gender: Female BSA: 2.24 Order #: [id number] BMI: 50 Physicians Procedure Physician: Yaya Beverly MD Referring MD: Zara Jay CNP Referring MD: Staff Name Position Time In Sites, Hillary RT (R) Scrub 11:59 AM Blanca Cao RN Marketing Technologist 11:59 AM Tripp Sumner RN Monitor 12:00 PM Indications Indication Non-Stemi Cardiomyopathy Procedures Performed Procedure L HRT ARTERY/VENTRICLE ANGIO Pre-Procedure Checklist Informed consent is complete signed and on chart. H&P is on chart. ID band is on and ID verified with patient. Patient NPO for procedure The procedure was described for the patient and questions were answered. Blood Pressure: 95/87 ECG is on chart. Rhythm: Atrial Fibrillation Plan of Care Patient will tolerate the procedure without complications. Adequate level of comfort will be maintained. Hemodynamics will remain stable Patient will recover from procedure without complications. Respiratory function will be maintained. Cardiac rhythm will remain stable. Patient temperature will be maintained. Patient and/or family have verbalized understanding of the procedure. Patient Education Chief Complaint/Reason for Test: Cardiac Cath Developmental Category: Geriatric (65+ years) Developmentally Appropriate for Age: Yes Learning Barriers: None Education Needs: Procedure Education Method: Verbal Information Taught: Cardiac Cath Educational Evaluation: Able to repeat information Intravenous Access Time IV Size Location DC'd Fluid/Drip Rate Units RN 11:04 AM EPIV Rt upper arm 0.9NaCl 25 ml/hr Tripp Sumner RN 11:04 AM EPIV Lt upper arm Amiodarone 0.5 mg/min Tripp Sumner RN Allergies SULFA DRUGS cephalexin doxycycline Amoxicillin latex Vital Signs Time BP (mmHg) HR (bpm) O2 Sat. RR (bpm) LOC 11:05 AM 95 / 87 118 95 % 18 5 = Fully awake and oriented or at pre-proc level 02:13 PM / % 4 = Oriented but drowsy 02:08 PM 136 / 102 116 97 % 15 02:14 PM 135 / 101 107 95 % 23 02:19 PM 120 / 73 149 84 % 17 02:23 PM 125 / 80 101 89 % 15 Procedural Medications Time Medication Dose Units Method Given By 01:54 PM Oxygen 2 L/min nasal cannula Blanca Cao RN 02:13 PM Versed 1 mg Intravenous Blanca Cao RN 02:13 PM Fentanyl 50 mcg Intravenous Blanca Cao RN 02:15 PM Lidocaine 2% 5 ml Subcutaneous Yaya Beverly MD 02:17 PM Heparin 4000 units Nitroglycerin 200 mcg Verapamil 2.5 mg Intraarterial Yaya Beverly MD 02:18 PM Oxygen 4 L/min nasal cannula Blanca Cao RN 02:21 PM Oxygen 6 L/min Oxy Mask Blanca Cao RN ASA Classification: CLASS III- Severe systemic disease (i.e. prior AMI, diabetes with vascular complications, morbid obesity) [place] Score Preprocedure Postprocedure Activity 2- Moves 4 extremities sustained head lift Activity 2- Moves 4 extremities sustained head lift Circulation 2- SBP +/= 20 points of pre-anesthetic level Circulation 2- SBP +/= 20 points of pre-anesthetic level Consciousness 2- Awake and alert oriented x 3 Consciousness 2- Awake and alert oriented x 3 O2 Saturation 1- Needs O2 inhalation to maintain O2 saturation of 90% O2 Saturation 1- Needs O2 inhalation to maintain O2 saturation of 90% Respiratory 2- Able to deep breathe and cough well Respiratory 2- Able to deep breathe and cough well Total Score 9 Total Score 9 Contrast Agent: Isovue Diagnostic Contrast: 68 ml Total Contrast: 68 ml Fluoro Dose: 538 mGy Procedure Log Time Note Enter By 11:01 AM CathStat 11:59 AM Pt arrived to home performance laborer 2 at 11:59 csmith 11:59 AM Hillary Rodríguez RT (R) Position: Scrub Time in: 11:59 csmith 12:00 PM Blanca Cao RN Position: Marketing Technologist Time in: 11:59 csmith 12:00 PM Tripp Sumner RN Position: Monitor Time in: 12:00 csmith 12:00 PM Patient charges- Angio tray pack, Navilyst 3mm J, Pulse Oximetry and ACIST tubing and transducer csmith 12:00 PM Case Delayed No csmith 12:01 PM Before sign in completed STEMI alert called in ED, pt returned to 2N room under care of 2N staff csmith 01:54 PM Pt arrived to home performance laborer 2 at 13:54 csmith 01:54 PM Case Delayed Prior emergency case csmith 01:54 PM Time: 13:54 Oxygen on at 2 L/min per nasal cannula by Blanca Cao RN csmith 01:58 PM Sign in performed according to hospital policy. csmith 01:58 PM Meet and greet completed csmith 02:08 PM Case Start 02:08 PM Vitals capture started with the following parameters, Patient=Adult, Interval=5 min, Initial Ewtdpvvo=285 mmHg, Deflation Rate=5 mmHg, Cuff placed on Right Arm 02:08 PM Procedure start 14:08 csmith 02:08 PM XO=036 bpm, CJLZ=590/102 mmhg, SpO2=97.0 %, Resp=15 B/min, Comment=afib 02:13 PM Time: 14:13 Patient comfortable and pain free: Yes csmith 02:13 PM Time: 14:13LOC: 4 = Oriented but drowsy csmith 02:13 PM Time: 14:13 Versed 1 mg Intravenous Given by Blanca Cao RN csmith 02:13 PM Time: 14:13 Fentanyl 50 mcg Intravenous Given by Blanca Cao RN csmith 02:13 PM Pressure channel 2 zero failed. 02:13 PM Pressure channel 2 zeroed. 02:14 PM RA=919 bpm, NYME=206/101 mmhg, SpO2=95.0 %, Resp=23 B/min, Comment=afib 02:15 PM Time out performed according to hospital policy csmith 02:15 PM Time: 14:15 5 ml Lidocaine 2% to right radial Subcutaneous Given by Yaya Beverly MD csmith 02:17 PM Access obtained by percutaneous puncture. 5/6Fr 10cm Terumo Glidesheath sheath placed in right Radial artery. [id number] csmith 02:17 PM Time: 14:17 Patient given 4,000 units Heparin, 200 mcg Nitroglycerin, and 2.5 mg Verapamil Intraarterial by Yaya Beverly MD. This is given to reduce risk of vessel spasm and thrombosis. csmith 02:17 PM 5Fr Ryan Radial catheter inserted over the wire DNC csmith 02:17 PM 0.035 260cm Navilyst 3mmJ wire [id number] csmith 02:18 PM Time: 14:18 Oxygen on at 4 L/min per nasal cannula by [place], Blanca RN csmith 02:19 PM Recorded Pressure: LV, TG=326, Condition=Condition 1 (Left Ventricle) LV 111/8/22 02:19 PM Catheter selectively placed in left ventricle csmith 02:19 PM Bolus angiogram of left Ventricle complete: 10 ml/sec for a total of 30 mls csmith 02:19 PM FR=730 bpm, EPBR=169/73 mmhg, SpO2=84.0 %, Resp=17 B/min, Comment=afib 02:20 PM Recorded Pressure: LV, Ao, OM=684, Condition=Condition 1 (Left Ventricle) LV 83/37/36, (Aorta) Ao 87/75/82 02:20 PM LCA angiography performed in multiple views. csmith 02:21 PM Time: 14:21 Oxygen on at 6 L/min per Oxy Mask by Blanca Cao RN csmith 02:23 PM FX=066 bpm, TMZZ=945/80 mmhg, SpO2=89.0 %, Resp=15 B/min, Comment=afib 02:24 PM Recorded Pressure: Ao, HR=81, Condition=Condition 1 (Aorta) Ao 99/81/90 02:25 PM Coronary Dominance: right csmith 02:25 PM Catheter removed csmith 02:25 PM Wire removed csmith 02:25 PM Procedure completed at 14:25 csmith 02:26 PM Sign out completed: Radiation Dose 538 mGy Fluoro Time: 3.2 Isovue 370 - 200ml contrast 68 ml given by Yaya Beverly MD. Complications: NoneCardiac Rehab Consult needed: NoConfirmed administered medications: Yes csmith 02:27 PM Isovue 370 - 200ml,1 Bottle(s) used. csmith 02:27 PM Arterial sheath pulled, Vasc Band closure device used and was Successful S/N. csmith 02:27 PM 10 ml air in Vasc Band. csmith 02:27 PM Estimated Blood Loss: minimal csmith 02:27 PM Post ECG Atrial Fibrillation csmith 02:27 PM Post Blood Pressure 125/80 csmith 02:27 PM 14:27 Post Pulses Rt Radial 1+ csmith 02:28 PM Information taught Vasc Band and Cardiac Cath csmith 02:28 PM Education needs Responsibilities of Patient in Care csmith 02:28 PM Learning barriers :None csmith 02:28 PM Education Methods Verbal csmith 02:28 PM Education evaluation Able to repeat information csmith 02:28 PM Site status No bleeding/hematoma - Rt Wrist as reported by Sites, Hillary RT (R) at 14:28 csmith 02:28 PM Family placed in consult room. csmith 02:29 PM Report given to Shannon BERRIOS Pt taken to 2N Room #5. csmith 02:36 PM Patient out of room: 14:36 csmith 02:37 PM Patient out of room: 14:37 csmith Complications Complication None Hemodynamics Pressures Site Systolic/A Wave Diastolic/V Wave Mean LV 111 8 22 LV 83 37 36 AO 87 75 82 AO 99 81 90 Post Procedure Information Blood Pressure: 125/80 mmHg Rhythm: Atrial Fibrillation Post procedural instructions were given Closure Device Time Device Success/Fail Mechanical Compression Successful Site Checks Time Location Status Staff Sheath In? Note 02:28 PM Rt Wrist No bleeding/hematoma Sites, Hillary RT (R) Pulses Time Site Pre-Procedure Post-Procedure Note 06/03/2017 11:18:00 AM Bilateral radial 2+ 2:27:00 PM Rt Radial 1+ Updated by Tripp Sumner RN on 06/03/2017 2:37:17 PM electronically signed on 06/03/2017 2:38:40 PM with status of Final
[2017-06-03] MEDS ORDERED: Furosemide 40 MG/4 ML VIAL IVP ONE (15:04)
[2017-06-03] MEDS ORDERED: Metoprolol XL (24 HR) Succ 25 MG TAB.ER.24H PO SCH (15:15)
[2017-06-03] MEDS: *HR* Rivaroxaban 10 MG TABLET PO SCH (15:31)
[2017-06-03] MEDS: *HR* Digoxin 0.125 MG TABLET PO SCH (15:31)
[2017-06-04 05:33] LABS: Basophils # 0.1 K/mcL (0.0-0.2); Basophils % 0.7 %; Eosinophils # 0.1 K/mcL (0.0-0.6); Eosinophils % 1.6 %; Hemoglobin 14.1 g/dL (11.5-15.4); Immature Granulocytes % 0.5 % (0-4); Lymphocytes # 1.5 K/mcL (0.6-4.6); Lymphocytes % 17.1 %; Mean Corpuscular Hemoglobin 28.9 pg (28.0-33.3); Mean Corpuscular Volume 90.2 fL (83.0-100.0); Mean Platelet Volume 11.1 fL (9.4-12.4); Monocytes # 1.3 K/mcL (0.0-1.3); Monocytes % 15.2 %; Neutrophils # 5.6 K/mcL (1.6-8.9); Platelet Count 125 K/mcL (140-400); Red Blood Count 4.88 M/mcL (3.82-4.97); Red Cell Distribution Width 15.6 % (11.5-14.5); Segmented Neutrophils % 64.9 %
[2017-06-04 05:39] LABS: VBG Ionized Calcium 1.08 mmol/L (1.15-1.35); VBG PH 7.37 pH Units (7.32-7.42)
[2017-06-04 05:50] LABS: BUN/Creatinine Ratio 24 (6-26); Blood Urea Nitrogen 14 mg/dL (8-23); Calcium 8.4 mg/dL (8.6-10.3); Carbon Dioxide 29 mEq/L (23-29); Chloride 101 mEq/L (98-107); Glucose 103 mg/dL (70-105); Osmolality,Calculated 285 (280-300); Potassium 3.6 mEq/L (3.5-5.1); Sodium 137 mEq/L (136-145); eGFR For African Americans > 60 (> 60); eGFR For Non-African Americans > 60 (> 60)
[2017-06-04 06:36] LABS: Phosphorous 2.5 mg/dL (2.7-4.5)
[2017-06-04] MEDS ORDERED: Furosemide 40 MG/4 ML VIAL IVP ONE (08:16)
[2017-06-04] MEDS: *HR* Digoxin 0.125 MG TABLET PO SCH (08:54)
[2017-06-04] MEDS: Metoprolol XL (24 HR) Succ 25 MG TAB.ER.24H PO SCH ×2 (08:55→10:09)
[2017-06-04] MEDS: Vancomycin 1,250 MG in D5% in Water 250 ML IVPB SCH ×2 (08:55→22:21)
[2017-06-04] MEDS: Insulin LISPRO 300 UNITS/3 ML VIAL SQ SCH ×4 (08:56→21:19)
[2017-06-04] MEDS: cefTRIAXone 2,000 MG in Water for inj. (sterile) 20 ML IVP SCH (08:56)
[2017-06-04] MEDS: Budesonide/Formoterol 160/4.5 MDI IH SCH ×2 (10:05→20:38)
--- NOTE | 2017-06-04 11:29 | Cardiology Progress Note ---
Date of Encounter: 06/04/17 Time of Encounter: 09:00 Assessment and Plan (1) Atrial fibrillation with RVR Current Visit: Yes Status: Acute Known history of paroxysmal atrial fibrillation, presenting with RVR. Heart rates 90-100's overnight. She was started on digoxin yesterday. We will increase Toprol for better HR control. Continue IV diuresis. Can consider DCCV - would need JULIA since xarelto was held for cath. Will keep NPO tonight and re-evaluate tomorrow. (2) Acute exacerbation of CHF (congestive heart failure) Current Visit: Yes Status: Acute Patient is feeling better overall but not back to her baseline. She is net negative 1680cc. Renal function remains normal after cath - minimal CAD. Recommend continuing IV diuresis. Consider the addition of ACEI prior to discharge. Qualifiers: Congestive heart failure type: systolic Qualified Code(s): I50.23 - Acute on chronic systolic (congestive) heart failure (3) Pain of right upper extremity Current Visit: Yes Status: Acute On exam, he should Ms. very tender in the radial area of the right upper extremity. There is ecchymosis and swelling as well. Recommend performing right upper extremity arterial imaging for further evaluation. Hemoglobin remained stable after cath. (4) Positive occult stool blood test Current Visit: Yes Status: Acute Recent positive test result for occult stool blood in her colostomy. 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 Surgery evaluated the patient and did not feel that this was a contraindication to proceeding with catheterization. Patient did not require PCI. Her hemoglobin remained stable. Discussion w patient/family: Spoke with patient and family members. Subjective Principal diagnosis: BLE cellulitis, CHF exacerbation Interval history: Patient reports feeling better overall. Her LE edema and breathing have somewhat improved but not back to baseline. She has tenderness and some swelling of her right wrist area after LHC by radial approach yesterday. Objective Vital Signs, Last 4 Hours Temp Pulse Resp BP Pulse Ox 06/04/17 11:22 98.2 F 92 18 92 06/04/17 10:05 18 91 06/04/17 08:19 98.1 F 80 18 122/81 90 General: Conversant, No Apparent Distress HEENT: Mucus Membranes Moist Neck: No JVD Cardiac: Other (irregularly irregular, no new murmur) Lungs: Other (diminished breath sounds bilaterally) Neuro: Alert and responsive, No focal deficits noted Abdomen: Soft, Non-Tender, Other (normal bowel sounds) Extremities: Other (bilateral LE edema) Other: Right wrist is soft, mildly swollen, tender with ecchymoses, ulnar pulse is 2+ Results 06/04/17 05:30 06/04/17 05:30 Lab Results 06/04/17 06/04/17 06/04/17 05:30 05:30 05:30 WBC 8.7 Hgb 14.1 Hct 44.0 Plt Count 125 L Sodium 137 Potassium 3.6 Chloride 101 Carbon Dioxide 29 BUN 14 Creatinine 0.59 L Glucose 103 Calcium 8.4 L Magnesium 1.8 - Imaging and Cardiology Cardiac cath: report reviewed - EKG Interpretation EKG results cardiology: other (24h telemetry demonstrates atrial fibrillation, average HR 90-100's, no concerning dysrhythmia) Consult Discharge Plan - Plan Referrals: Radha Salgado CNP [Advanced Practice Nurse] - 06/15/17 10:00 am
[2017-06-04] MEDS: *HR* Rivaroxaban 10 MG TABLET PO SCH (17:17)
[2017-06-04] MEDS: Ondansetron 4 MG/2 ML VIAL IVP PRN (17:17)
--- NOTE | 2017-06-04 17:26 | Internal Med Progress Note ---
Date of Encounter: 06/04/17 Time of Encounter: 17:24 - Assessment and plan (1) Atrial fibrillation with RVR Current Visit: Yes Status: Acute Assessment and plan: Patient with atrial fibrillation with rapid ventricular rate. Likely due to acute decompensated heart failure. Sepsis possible on differential but questionable if she has true sepsis. Patient was treated initially in ICU with Cardizem infusion and started on beta blockers without significant control and now she is on admit her inpatient cardiology following. Patient started on Digoxin, Toprol dose will be increased. Cardiology team to re evaluating tomorrow if cardioversion indicated. Xarelto is resumed (2) Acute exacerbation of CHF (congestive heart failure) Current Visit: Yes Status: Acute Assessment and plan: He has decompensated congestive heart failure which likely precipitated by her atrial fibrillation with rapid antegrade. She is on IV diuretics. Her ejection fraction is lower than before from 45-35% from echocardiogram. [facility] done 06/03 Qualifiers: Congestive heart failure type: systolic Qualified Code(s): I50.23 - Acute on chronic systolic (congestive) heart failure (3) Cellulitis of right lower extremity Current Visit: Yes Status: Acute Assessment and plan: Her erythema was noted to be improving. Leukocytosis resolved Tachycardia likely from sepsis Continue Vanc/Rocephin (4) Obstructive sleep apnea Current Visit: Yes Status: Chronic Assessment and plan: Although she was known to have obstructive sleep apnea she has not been using CPAP. Strongly advised to have reevaluation for her sleep apnea and to comply with CPAP. (5) T2DM (type 2 diabetes mellitus) Current Visit: Yes Status: Acute Assessment and plan: Continue insulin sliding scale Qualifiers: Diabetes mellitus complication status: with neurologic complications Diabetes mellitus complication detail: with polyneuropathy Diabetes mellitus religious healer insulin use: with fdc use Qualified Code(s): E11.42 - Type 2 diabetes mellitus with diabetic polyneuropathy; Z79.4 - [facility] (current) use of insulin; Z79.4 - [facility] (current) use of insulin; Z79.4 - [facility] ( current) use of insulin; Z79.4 - technical data analyst (current) use of insulin (6) Weakness Current Visit: Yes Status: Acute Assessment and plan: She has been trying to stay actie but after cellulitis of legs and co morbidities, patient has been more week. PT/OT consulted, she would be a good candidate for home services. Will follow- up recs. (7) Positive occult stool blood test Current Visit: Yes Status: Acute Assessment and plan: Sample obtained from colostomy. Has a known chronic wound in stoma. Hemoglobin stable - Constitutional Vitals: Temp Pulse Resp BP Pulse Ox 98.2 F 92 18 122/81 92 06/04/17 11:22 06/04/17 11:22 06/04/17 11:22 06/04/17 08:19 06/04/17 11:22 Exam: Gen: Morbidly obese, NAD CVS: irregularly irregular rhythm, no mrg Lungs: Decreased breath sounds at bases, no wrr Abd: truncal obesity, ileostomy Ext: Bilateral pitting leg edema with chronic venous stasis changes. Internal Medicine: Result - Labs CBC & Chem 7: 06/04/17 05:30 06/04/17 05:30 Labs: Short CBC 06/04/17 Range/Units 05:30 WBC 8.7 (4.3-11.1) K/mcL Hgb 14.1 (11.5-15.4) g/dL Hct 44.0 (35.3-44.9) % Plt Count 125 L (140-400) K/mcL Neutrophils # 5.6 (1.6-8.9) K/mcL BMP 06/04/17 05:30 Sodium 137 Potassium 3.6 Chloride 101 Carbon Dioxide 29 BUN 14 Creatinine 0.59 L Glucose 103 Calcium 8.4 L Consult Discharge Plan - Plan Referrals: Radha Salgado CNP [Advanced Practice Nurse] - 06/15/17 10:00 am
[2017-06-04 22:23] LABS: VBG Ionized Calcium 1.06 mmol/L (1.15-1.35); VBG PH 7.39 pH Units (7.32-7.42)
[2017-06-04 22:25] LABS: Magnesium 1.8 mg/dL (1.6-2.6); Phosphorous 2.3 mg/dL (2.7-4.5); Potassium 3.3 mEq/L (3.5-5.1)
[2017-06-05 05:44] LABS: VBG Ionized Calcium 1.07 mmol/L (1.15-1.35); VBG PH 7.38 pH Units (7.32-7.42)
[2017-06-05 05:49] LABS: Basophils # 0.1 K/mcL (0.0-0.2); Eosinophils # 0.2 K/mcL (0.0-0.6); Eosinophils % 2.2 %; Hematocrit 43.9 % (35.3-44.9); Hemoglobin 14.2 g/dL (11.5-15.4); Immature Granulocytes % 0.7 % (0-4); Lymphocytes # 1.7 K/mcL (0.6-4.6); Lymphocytes % 23.2 %; Mean Corpuscular HGB Conc 32.3 g/dL (31.6-35.5); Mean Corpuscular Hemoglobin 29.2 pg (28.0-33.3); Mean Corpuscular Volume 90.1 fL (83.0-100.0); Mean Platelet Volume 10.7 fL (9.4-12.4); Monocytes # 1.2 K/mcL (0.0-1.3); Monocytes % 16.6 %; Neutrophils # 4.1 K/mcL (1.6-8.9); Platelet Count 151 K/mcL (140-400); Red Blood Count 4.87 M/mcL (3.82-4.97); Red Cell Distribution Width 15.4 % (11.5-14.5); Segmented Neutrophils % 56.3 %
[2017-06-05 05:56] LABS: BUN/Creatinine Ratio 21 (6-26); Blood Urea Nitrogen 14 mg/dL (8-23); Calcium 8.4 mg/dL (8.6-10.3); Carbon Dioxide 32 mEq/L (23-29); Chloride 102 mEq/L (98-107); Glucose 95 mg/dL (70-105); Magnesium 2.2 mg/dL (1.6-2.6); Osmolality,Calculated 286 (280-300); Phosphorous 3.7 mg/dL (2.7-4.5); Potassium 3.7 mEq/L (3.5-5.1); Sodium 138 mEq/L (136-145); eGFR For African Americans > 60 (> 60); eGFR For Non-African Americans > 60 (> 60)
[2017-06-05] MEDS ORDERED: Aminoglycoside Consult 1 EACH MC ONE (07:23)
[2017-06-05] MEDS: Insulin LISPRO 300 UNITS/3 ML VIAL SQ SCH ×4 (07:36→20:17)
[2017-06-05] MEDS: Vancomycin 1,250 MG in D5% in Water 250 ML IVPB SCH (09:27)
[2017-06-05] MEDS: cefTRIAXone 2,000 MG in Water for inj. (sterile) 20 ML IVP SCH (09:28)
[2017-06-05] MEDS: Metoprolol XL (24 HR) Succ 25 MG TAB.ER.24H PO SCH (09:29)
[2017-06-05] MEDS: *HR* Digoxin 0.125 MG TABLET PO SCH (09:29)
[2017-06-05] MEDS: Budesonide/Formoterol 160/4.5 MDI IH SCH ×2 (10:56→20:15)
--- NOTE | 2017-06-05 12:29 | Cardiology Progress Note ---
Addendum entered and electronically signed by Kalli Thomson MD 06/05/17 15 :56: Cardiology signing off. Re-consult as needed. Outpatient FU already scheduled. Original Note: <Kalli Thomson - Last Filed: 06/05/17 14:55> Date of Encounter: 06/05/17 Time of Encounter: 12:18 Assessment and Plan (1) Atrial fibrillation with RVR Current Visit: Yes Status: Acute Known history of paroxysmal atrial fibrillation, presenting with RVR. Heart rates 90-100's overnight. She was started on digoxin Monday. -Echo on 06/01/2017- LVEF 35%, moderately dilated left ventricle, indeterminate diastolic function. Severely dilated left and right atria. No evidence of pulmonary hypertension or significant valvular dysfunction. LA 4.10 cm -LHC on 06/03/2017- left ventricle is enlarged with severaly abnormal contractility, EF%25. Minimal artherosclerotic CAD. -We will increase Toprol to 25mg PO daily for better HR control as BP will tolerate. -Discontinue home diltiazem in light of systolic dysfunction. -Will transition to 40mg PO lasix. -Stop Digoxin -Unlikely for a cardioversion to produce sustained results as patient has LATIA that is not being properly treated at home with CPAP. We will consult pulmonology to get her current with CPAP and LATIA treatment. -She will need follow up with Dr. Crouch in 4-5 weeks after compliance with CPAP to re-evaluate her cardiac function and consider rate and/or rhythm control. -continue xarelto (2) Acute exacerbation of CHF (congestive heart failure) Current Visit: Yes Status: Acute Patient is feeling better overall but not back to her baseline. Echo on 06/01/2017- LVEF 35%, moderately dilated left ventricle, indeterminate diastolic function. Severely dilated left and right atria. No evidence of pulmonary hypertension or significant valvular dysfunction. LHC on 06/03/2017- left ventricle is enlarged with severaly abnormal contractility, EF %25. Minimal artherosclerotic CAD. -Fluid balance net negative 2095cc. Renal function remains normal after cath - minimal CAD. -Switched to PO lasix 40 mg. -Consider the addition of ACEI prior to discharge if blood pressure will tolerate, currently borderline. -Will consult pulmonology. Heart is likely very stressed secondary to LATIA and poor CPAP compliance. Qualifiers: Congestive heart failure type: systolic Qualified Code(s): I50.23 - Acute on chronic systolic (congestive) heart failure (3) Cellulitis of right lower extremity Current Visit: Yes Status: Acute Patient with Erythema, swelling pain BLE. -WBC trending downwards. Antibiotics descalated to vancomycin and ceftriaxone. Plan: continue management per primary team. (4) HTN (hypertension) Current Visit: Yes Status: Chronic Pt with hx of HTN -On metoprolol tartrate 50 daily and Diltiazem 240ER at home Plan: -Amiodarine drip discontinued -Restarted BB, changed to metoprolol succinae 25 mg daily -continue management per primary team Qualifiers: Hypertension type: essential hypertension Qualified Code(s): I10 - Essential (primary) hypertension (5) COPD (chronic obstructive pulmonary disease) Current Visit: Yes Status: Chronic Pt with Hx of Chronic COPD on home symbicort, singular, and albuterol Plan: continue management per primary team Qualifiers: COPD type: unspecified COPD Qualified Code(s): J44.9 - Chronic obstructive pulmonary disease, unspecified (6) Obstructive sleep apnea Current Visit: Yes Status: Chronic Pt with hx of LATIA on CPAP at night. -per patient she hasn't been using CPAP lately due to URI sxs dry throat. -Could be another reason patient went into a fib with RVR. Plan: -encourage CPAP usage. -treat underlying URI issues to increase compliance. Discussion w patient/family: The assessment and plan as outlined above was discussed with the patient and/or family members who expressed understanding and agreement. All questions were answered. Thank you for involving us in the care of your patient. Please call with any questions. Subjective Principal diagnosis: BLE cellulitis, CHF exacerbation Interval history: Ms. Leyva is a 61 yo female with PMHx of atrial fibrillation (on xarelto for AC , diltiazem 240 ER and metoprolol succinate 50mg for rate control), pacemaker for bradycardia, COPD, HTN, HLD, DM, polycythemia, LATIA, psoriasis, colostomy, and hysterectomy who initially presented to [place] ED on 06/01/2017 for BLE pain and swelling. Cardiology was consulted as patient was found to be in afib with RVR. Amiodarone drip discontinued. Home metoprolol started at half home dose. HR controlled with resumption of BB as well as Digoxin which was started on 06/03. Patient states she feels much improved this morning. She denies chest pain or pressure, palpitations, shortness of breath, nausea, vomitting or diarrhea. She denies any hematochezia, melana or hematemesis. She is amenable to DCCV with JULIA. Currently NPO. Objective Vital Signs, Last 4 Hours Temp Pulse Resp BP Pulse Ox 06/05/17 11:20 98.1 F 73 15 103/66 97 06/05/17 10:57 16 93 06/05/17 10:44 70 16 93 06/05/17 09:40 75 06/05/17 09:16 75 20 96 General: Conversant, No Apparent Distress HEENT: Atraumatic, Mucus Membranes Moist Neck: No JVD Cardiac: Reg Rate and Rhythm, Normal S1 and S2 Lungs: Other (Clear, no wheezes, rales or rhonchi. ) Neuro: Alert and responsive Abdomen: Soft Skin: Other (Bilateral lower extremity erythema and warmth improved from previous exams. ) Extremities: No Clubbing, No Cyanosis, Other (2+ pitting edema. ) Results 06/05/17 05:30 06/05/17 05:30 Lab Results 06/04/17 06/05/17 06/05/17 22:02 05:30 05:30 WBC 7.2 Hgb 14.2 Hct 43.9 Plt Count 151 Sodium 138 Potassium 3.3 L 3.7 Chloride 102 Carbon Dioxide 32 H BUN 14 Creatinine 0.68 Glucose 95 Calcium 8.4 L Magnesium 1.8 2.2 Consult Discharge Plan - Plan Referrals: Radha Salgado CNP [Advanced Practice Nurse] - 06/15/17 10:00 am <Jairo Camacho - Last Filed: 06/05/17 19:15> Date of Encounter: 06/05/17 Assessment and Plan Discussion w patient/family: The assessment and plan as outlined above was discussed with the patient and/or family members who expressed understanding and agreement. All questions were answered. Thank you for involving us in the care of your patient. Please call with any questions. Objective Vital Signs, Last 4 Hours Temp Pulse Resp BP Pulse Ox 06/05/17 18:36 78 20 93 06/05/17 16:19 86 06/05/17 16:15 77 16 119/86 94 06/05/17 16:14 99.6 F 64 20 119/86 94 Results 06/05/17 05:30 06/05/17 05:30 Lab Results 06/04/17 06/05/17 06/05/17 22:02 05:30 05:30 WBC 7.2 Hgb 14.2 Hct 43.9 Plt Count 151 Sodium 138 Potassium 3.3 L 3.7 Chloride 102 Carbon Dioxide 32 H BUN 14 Creatinine 0.68 Glucose 95 Calcium 8.4 L Magnesium 1.8 2.2 - Attending Attestation I examined this patient and my medical decision-making was reviewed with the Resident Physician. I agree with the documented findings, disposition and treatment plan as described except to the extent set forth below. Pt reports heart racing and skipping has resolved. She is less short of breath , She also reports she has lost parts of her home CPAP machine, and therefore has not used it for several months. She reports frequent daytime somnolence, falls asleep very easily during the day and does not awake rested. IMP: 1. A fib with RVR, better controlled on metoprolol succinate 25 mg q d, will dc dig, continue to monitor clinical response, suspect will need to increase dose if heartrate not fully controlled with activity. 2. Acute on chronic exacerbation of systolic heartfailure, due to non-ischemic cardiomyopathy, EF 25%, responding to IV lasix, will switch to PO. Pt may be candidate for AICD, will plan on close follow up at discharge, repeat echo to eval LV function in 90 days. 3. LATIA - not fully treated, consult pulmonary for eval need for home CPAP 4. Cellulitis right lower extremity, on AB, slowly improving
[2017-06-05] MEDS: *HR* Rivaroxaban 10 MG TABLET PO SCH (16:04)
--- NOTE | 2017-06-05 16:04 | Event Note ---
Date of Encounter: 06/05/17 Time of Encounter: 16:02 Patient has a known diagnosis of LATIA on CPAP 10 at night with O2 bleed. She is historically non compliant but apparently she does still have PAP machine "in storage" we will discuss with her DME regarding updating equipment and set patient up with CPAP titration as oupatient. While in patient she should receive CPAP at night at pressure 10 (discussed with RT) with O2 bleed to keep sat around 89-92%.
[2017-06-05 22:01] LABS: VBG Ionized Calcium 1.09 mmol/L (1.15-1.35); VBG PH 7.38 pH Units (7.32-7.42)
[2017-06-05 22:12] LABS: BUN/Creatinine Ratio 23 (6-26); Blood Urea Nitrogen 15 mg/dL (8-23); Calcium 8.5 mg/dL (8.6-10.3); Carbon Dioxide 30 mEq/L (23-29); Chloride 103 mEq/L (98-107); Glucose 99 mg/dL (70-105); Osmolality,Calculated 289 (280-300); Potassium 3.8 mEq/L (3.5-5.1); Sodium 139 mEq/L (136-145); eGFR For African Americans > 60 (> 60); eGFR For Non-African Americans > 60 (> 60)
--- NOTE | 2017-06-06 01:55 | Internal Med Progress Note ---
Date of Encounter: 06/05/17 Time of Encounter: 10:53 - Assessment and plan (1) Atrial fibrillation with RVR Current Visit: Yes Status: Acute Assessment and plan: Patient with atrial fibrillation with rapid ventricular rate. Likely due to acute decompensated heart failure. Sepsis possible on differential but questionable if she has true sepsis. Patient was treated initially in ICU with Cardizem infusion and started on beta blockers without significant control and now she is on admit her inpatient cardiology following. Patient started on Digoxin, Toprol dose will be increased. Cardiology team to re evaluating if cardioversion indicated. Xarelto is resumed (2) Acute exacerbation of CHF (congestive heart failure) Current Visit: Yes Status: Acute Assessment and plan: He has decompensated congestive heart failure which likely precipitated by her atrial fibrillation with rapid antegrade. She is on IV diuretics. Her ejection fraction is lower than before from 45-35% from echocardiogram. LHC done 06/03. Medical management optimized by Cardiology Service, fluid restriction continued. Qualifiers: Congestive heart failure type: systolic Qualified Code(s): I50.23 - Acute on chronic systolic (congestive) heart failure (3) Cellulitis of right lower extremity Current Visit: Yes Status: Acute Assessment and plan: Her erythema was noted to be improving. Leukocytosis resolved Tachycardia likely from sepsis and/or CHF Continue Vanc/Rocephin (4) Obstructive sleep apnea Current Visit: Yes Status: Chronic Assessment and plan: Although she was known to have obstructive sleep apnea she has not been using CPAP. Strongly advised to have reevaluation for her sleep apnea and to comply with CPAP. (5) T2DM (type 2 diabetes mellitus) Current Visit: Yes Status: Acute Assessment and plan: Continue insulin sliding scale Qualifiers: Diabetes mellitus complication status: with neurologic complications Diabetes mellitus complication detail: with polyneuropathy Diabetes mellitus intermediate designer insulin use: with intermediate designer use Qualified Code(s): E11.42 - Type 2 diabetes mellitus with diabetic polyneuropathy; Z79.4 - FPC (current) use of insulin; Z79.4 - long term care administrator (current) use of insulin; Z79.4 - FPC ( current) use of insulin; Z79.4 - long term care administrator (current) use of insulin (6) Weakness Current Visit: Yes Status: Acute Assessment and plan: She has been trying to stay actie but after cellulitis of legs and co morbidities, patient has been more week. PT/OT consulted, she would be a good candidate for home services. Will follow- up recs. (7) Positive occult stool blood test Current Visit: Yes Status: Acute Assessment and plan: Sample obtained from colostomy. Has a known chronic wound in stoma. Hemoglobin stable - Subjective Interval history: No complaints, no acute events. - Constitutional Vitals: Temp Pulse Resp BP Pulse Ox 98.0 F 69 16 121/76 93 06/05/17 23:57 06/05/17 23:57 06/05/17 23:57 06/05/17 23:57 06/05/17 23:57 General appearance: Present: A&O X 3, pleasant, no acute distress Exam: CVS: irreg irreg rate and rhythm Lungs; CTAB Abd: soft, nt/nd Ext: bilateral erythema improving compared to yesterday exam. Internal Medicine: Result - Labs CBC & Chem 7: 06/05/17 05:30 06/05/17 21:30 Labs: Short CBC 06/05/17 Range/Units 05:30 WBC 7.2 (4.3-11.1) K/mcL Hgb 14.2 (11.5-15.4) g/dL Hct 43.9 (35.3-44.9) % Plt Count 151 (140-400) K/mcL Neutrophils # 4.1 (1.6-8.9) K/mcL BMP 06/05/17 06/05/17 05:30 21:30 Sodium 138 139 Potassium 3.7 3.8 Chloride 102 103 Carbon Dioxide 32 H 30 H BUN 14 15 Creatinine 0.68 0.65 Glucose 95 99 Calcium 8.4 L 8.5 L Consult Discharge Plan - Plan Referrals: Radha Salgado FACTORY ASSEMBLER [Advanced Practice Nurse] - 06/15/17 10:00 am
[2017-06-06 05:11] LABS: Basophils # 0.1 K/mcL (0.0-0.2); Eosinophils # 0.2 K/mcL (0.0-0.6); Eosinophils % 1.9 %; Hematocrit 43.9 % (35.3-44.9); Hemoglobin 13.8 g/dL (11.5-15.4); Immature Granulocytes % 1.3 % (0-4); Lymphocytes # 1.9 K/mcL (0.6-4.6); Lymphocytes % 21.9 %; Mean Corpuscular HGB Conc 31.4 g/dL (31.6-35.5); Mean Corpuscular Hemoglobin 28.9 pg (28.0-33.3); Mean Platelet Volume 10.5 fL (9.4-12.4); Monocytes # 1.3 K/mcL (0.0-1.3); Monocytes % 15.1 %; Neutrophils # 5.2 K/mcL (1.6-8.9); Nucleated Red Blood Cells 0.2 /100 WBC (0); Platelet Count 193 K/mcL (140-400); Red Blood Count 4.77 M/mcL (3.82-4.97); Red Cell Distribution Width 15.7 % (11.5-14.5); Segmented Neutrophils % 58.8 %
[2017-06-06 05:24] LABS: VBG Ionized Calcium 1.08 mmol/L (1.15-1.35); VBG PH 7.51 pH Units (7.32-7.42)
[2017-06-06 05:37] LABS: BUN/Creatinine Ratio 23 (6-26); Blood Urea Nitrogen 13 mg/dL (8-23); Calcium 8.4 mg/dL (8.6-10.3); Carbon Dioxide 32 mEq/L (23-29); Chloride 104 mEq/L (98-107); Glucose 93 mg/dL (70-105); Magnesium 1.9 mg/dL (1.6-2.6); Osmolality,Calculated 288 (280-300); Phosphorous 2.9 mg/dL (2.7-4.5); Potassium 4.4 mEq/L (3.5-5.1); Sodium 139 mEq/L (136-145); eGFR For African Americans > 60 (> 60); eGFR For Non-African Americans > 60 (> 60)
--- NOTE | 2017-06-06 07:58 | Pulmonology Consult Note ---
<Jairo Bernabe Duncan - Last Filed: 06/06/17 07:45> Date of Encounter: 06/06/17 Time of Encounter: 07:45 Assessment and Plan (1) Obstructive sleep apnea Current Visit: Yes Status: Chronic Known diagnosis of LATIA on CPAP 10 at night with O2 bleed. Pt follows with pulmonology as an out-patient. There is likely no reason to obtain another overnight study during her hospitalization. Non-compliant with CPAP at home and in need of new DME. Tolerates CPAP well when worn. Continue CPAP 10 while in-patient and titrate to keep sat around 89-92% - obtain new DME and continued titration as out-patient. Discussed with the patient the importance of wearing her CPAP and explained how wearing her CPAP decreases stress upon her heart. She reports that she understands and in agreement with the plan. (2) COPD (chronic obstructive pulmonary disease) Current Visit: Yes Status: Chronic Hx of COPD on symbicort, singulair, and albuterol Pt reports that she had started smoking again prior to admission. She states that she will not start smoking again upon discharge. Qualifiers: COPD type: unspecified COPD Qualified Code(s): J44.9 - Chronic obstructive pulmonary disease, unspecified (3) Atrial fibrillation with RVR Current Visit: Yes Status: Acute Management per primary team Encouraged pt to use CPAP to decrease strain on heart (4) Acute exacerbation of CHF (congestive heart failure) Current Visit: Yes Status: Acute Management per primary team Encouraged pt to use CPAP to decrease strain on heart Qualifiers: Congestive heart failure type: systolic Qualified Code(s): I50.23 - Acute on chronic systolic (congestive) heart failure History of Present Illness Consult date: 06/05/17 Requesting physician: Kalli Thomson Reason for consult: obstructive sleep apnea Chief complaint: Dyspnea History of present illness: Ms. Leyva is a 61 year old female with PMH of COPD, LATIA, atrial fibrillation, pacemaker for bradycardia, systolic CHF, HTN, type 2 DM, polycythemia, psoriasis , colostomy, and hysterectomy that initially presented with bilateral LE edema, dyspnea, and URI symptoms on 05/31/17. She was admitted for acute exacerbation of CHF, sepsis, A. fib with RVR and cellulitis of the right lower extremity. She has been evaluated by cardiology and pulmonology. This consult is due to management of LATIA as it is likely complicating her other conditions. The patient follows with pulmonology as an out-patient and was previously using CPAP at home. She reports that she has moved recently and has lost some of her CPAP equipment in the move. She reports that she tolerates CPAP well when she wears it. She reports that her symptoms of dyspnea and LE edema are improving. She denies fevers, chills, chest pain, dyspnea, cough, nausea, vomiting, or diarrhea. Past Med Surg Social Fam HX - Past Medical History Medical history: arthritis, asthma, atrial fibrillation, COPD, diabetes, hyperlipidemia, hypertension, other Psychiatric history: depression - Past Surgical History Surgical History: colostomy, hysterectomy, pacemaker/AICD - Social History Smoking Status: Former smoker Smokeless Tobacco Status: No Alcohol use: none Drug use: none Medications and Allergies Alendronate Sodium [Fosamax] 10 mg PO DAILY 07/07/15 [History] Diltiazem HCl [Diltiazem 24Hr ER] 240 mg PO DAILY 07/07/15 [History] Ergocalciferol (VITAMIN D2) [Vitamin D2 (50,000 UNIT)] 50,000 unit PO QWEEK [History] Metoprolol [Lopressor] 50 mg PO DAILY 07/07/15 [History] Rivaroxaban [Xarelto] 20 mg PO DAILY 07/07/15 [History] Cetirizine HCl [Zyrtec] 10 mg PO DAILY 05/31/17 [History] Albuterol Sulfate [Ventolin Hfa] 2 puff IH Q4H 06/01/17 [History] BuPROPion XL (24 HR) [Wellbutrin XL] 150 mg PO DAILY 06/01/17 [History] Budesonide/Formoterol 160/4.5 [Symbicort 160/4.5] 2 puff IH BID 06/01/17 [ History] Dicyclomine [Bentyl] 10 mg PO QID 06/01/17 [History] Gabapentin [Neurontin] 1 cap PO TID 06/01/17 [History] Hydrocodone/Acetaminophen [[place] 5-325 Tablet] 1 tab PO BID PRN 06/01/17 [ History] Liraglutide [Victoza 2-Pedro] 0.6 mg IJ AD 06/01/17 [History] Montelukast [Singulair] 10 mg PO DAILY 06/01/17 [History] Omeprazole [PriLOSEC] 20 mg PO DAILY 06/01/17 [History] PARoxetine HCl [Paroxetine HCl] 20 mg PO DAILY 06/01/17 [History] Rivaroxaban [Xarelto] 20 mg PO DAILY 06/01/17 [History] Tizanidine HCl [Tizanidine HCl] 4 mg PO BID PRN 06/01/17 [History] 3 Allergy/AdvReac Type Severity Reaction Status Date / Time Amoxicillin AdvReac Vomiting Verified 07/07/15 11:29 cephalexin [From Keflex] AdvReac Vomiting Verified 07/07/15 11:29 doxycycline AdvReac Vomiting Verified 07/07/15 11:29 Sulfa (Sulfonamide AdvReac Vomiting Verified 07/07/15 11:29 Antibiotics) All Systems: A 10-system review of systems was performed and is negative for pertinent findings except as documented above in the HPI. Physical Examination Vital Signs: Vital Signs, Last 4 Hours Temp Pulse Resp BP Pulse Ox 06/06/17 03:59 97.6 F 78 17 106/74 95 06/06/17 03:56 17 94 General appearance: no acute distress Eyes: nonicteric ENT: oropharynx moist Neck: supple Effort: normal Inspection: normal Auscultation: bilateral: diminished breath sounds Cardiovascular: irregular rhythm Gastrointestinal: normoactive bowel sounds Integumentary: cellulitis (B/L LE) Extremities: no cyanosis, edema (B/L LE) Musculoskeletal: no deformities normal mental status, non-focal exam Results - Laboratory Findings CBC and BMP: 06/06/17 04:50 06/06/17 04:50 Abnormal lab findings: Abnormal lab results MCHC 31.4 g/dL (31.6-35.5) L 06/06/17 04:50 RDW 15.7 % (11.5-14.5) H 06/06/17 04:50 Nucleated RBCs/100 WBC 0.2 /100 WBC (0) H 06/06/17 04:50 Platelet Estimate Slight Decrease (Normal) L 06/01/17 03:49 VBG pH 7.51 pH Units (7.32-7.42) H 06/06/17 05:22 VBG pCO2 35 mmHg (41-51) L 06/01/17 04:03 VBG pO2 116 mmHg (25-50) H 06/01/17 04:03 Carbon Dioxide 32 mEq/L (23-29) H 06/06/17 04:50 Creatinine 0.56 mg/dL (0.60-1.20) L 06/06/17 04:50 POC Glucose 105 (58-89) H 06/05/17 20:13 Lactic Acid 2.5 mmol/L (0.5-2.2) H 05/31/17 21:58 Calcium 8.4 mg/dL (8.6-10.3) L 06/06/17 04:50 Venous Ioniz Calcium 1.08 mmol/L (1.15-1.35) L 06/06/17 05:22 Troponin I 0.04 ng/mL (< 0.04) H* 06/01/17 08:00 HDL Cholesterol 7 mg/dL (40-59) L 06/03/17 03:35 Cholesterol/HDL Ratio 14.6 (0-4.9) H 06/03/17 03:35 Stool Occult Blood Positive (Negative) A 06/02/17 13:30 - Clinical Findings Intake & Output: Intake & Output 06/05/17 06/05/17 06/06/17 15:59 23:59 07:59 Intake Total 270 / 270 400 / 400 Output Total 110 / 110 450 / 450 Balance 160 / 160 400 / 400 -450 / -450 Weight 127 kg Consult Discharge Plan - Plan Referrals: Radha Salgado, QUALITY ASSURANCE ENGINEER [Advanced Practice Nurse] - 06/15/17 10:00 am <Zak Coleman W - Last Filed: 06/06/17 10:42> Date of Encounter: 06/06/17 All Systems: A 10-system review of systems was performed and is negative for pertinent findings except as documented above in the HPI. Physical Examination Vital Signs: Vital Signs, Last 4 Hours Temp Pulse Resp BP Pulse Ox 06/06/17 07:45 98.2 F 90 15 104/73 90 Results - Laboratory Findings CBC and BMP: 06/06/17 04:50 06/06/17 04:50 Abnormal lab findings: Abnormal lab results MCHC 31.4 g/dL (31.6-35.5) L 06/06/17 04:50 RDW 15.7 % (11.5-14.5) H 06/06/17 04:50 Nucleated RBCs/100 WBC 0.2 /100 WBC (0) H 06/06/17 04:50 Platelet Estimate Slight Decrease (Normal) L 06/01/17 03:49 VBG pH 7.51 pH Units (7.32-7.42) H 06/06/17 05:22 VBG pCO2 35 mmHg (41-51) L 06/01/17 04:03 VBG pO2 116 mmHg (25-50) H 06/01/17 04:03 Carbon Dioxide 32 mEq/L (23-29) H 06/06/17 04:50 Creatinine 0.56 mg/dL (0.60-1.20) L 06/06/17 04:50 POC Glucose 105 (58-89) H 06/05/17 20:13 Lactic Acid 2.5 mmol/L (0.5-2.2) H 05/31/17 21:58 Calcium 8.4 mg/dL (8.6-10.3) L 06/06/17 04:50 Venous Ioniz Calcium 1.08 mmol/L (1.15-1.35) L 06/06/17 05:22 Troponin I 0.04 ng/mL (< 0.04) H* 06/01/17 08:00 HDL Cholesterol 7 mg/dL (40-59) L 06/03/17 03:35 Cholesterol/HDL Ratio 14.6 (0-4.9) H 06/03/17 03:35 Stool Occult Blood Positive (Negative) A 06/02/17 13:30 - Clinical Findings Intake & Output: Intake & Output 06/05/17 06/06/17 06/06/17 23:59 07:59 15:59 Intake Total 400 / 400 480 / 480 Output Total 650 / 650 200 / 200 Balance 400 / 400 -650 / -650 280 / 280 Weight 127 kg - Attending Attestation I examined this patient and my medical decision-making was reviewed with the Resident Physician. I agree with the documented findings, disposition and treatment plan as described except to the extent set forth below. We independently had [id number] contact with the patient Impression: Acute on Chronic Resp Failure COPD LATIA/OHS Afib HFrEF Medical non compliance Recs: Cont O2 to keep SaO2% around 89-92 Cont Bronchdilators reinforced need for CPAP ([id number]) with sleep and during Naps. Will right for CPAP supplies; repeat PSG as outpatient as scheduled with Dr Maksim Rich/CHF mngt per Cardiology PT/OT Consult Pulmonary Will sign off
[2017-06-06] MEDS: Furosemide 40 MG TABLET PO SCH (09:08)
[2017-06-06] MEDS: Insulin LISPRO 300 UNITS/3 ML VIAL SQ SCH ×4 (09:08→19:09)
[2017-06-06] MEDS: cefTRIAXone 2,000 MG in Water for inj. (sterile) 20 ML IVP SCH (09:08)
[2017-06-06] MEDS: Metoprolol XL (24 HR) Succ 25 MG TAB.ER.24H PO SCH (09:08)
--- NOTE | 2017-06-06 10:53 | Internal Med Progress Note ---
Date of Encounter: 06/06/17 Time of Encounter: 10:53 - Subjective Interval history: Interval changes: A&O x3 breathing comfortably siting in bed. She requires supplemental oxygen. She c/o SHUKLA with minimal activity. She is not c/o chest pain. Physical Exam: Assessment and Plan Obstructive sleep apnea Pulmonary medicine following. Appreciate assistance. On CPAP 10 at night with O2 bleed. Pulm. Med. recommends continuing at 10 while in-patient and titrate to keep sat around 89-92% No repeat sleep study this admission per Pulm. Med. Non-compliant with CPAP at home per records. She tollerates it well but her machine is broken. We will check to see if we cn get her a new CPAP before d/c to home. D/W patient today. I'll check with manager case management.Tolerates CPAP well when worn. Continue CPAP 10 while in-patient and titrate to keep sat around 89-92% . COPD: Continue symbicort, singulair, and albuterol Still smoking. Does not want nicotine patch. Currently on empiric abx coverage with Rocephin. Change to Levaquin for a few more days at d/c. Atrial fibrillation with RVR Cardiology assistance appreciated. Paroxysmal atrial fibrillation, presenting with RVR. Digoxin started Monday. Toprol incresed to 25mg PO daily with improved rate control. Diltiazem was d/c'd. CPAP use ecuraged to reduce strain on heart Continue Xarelto for stroke prophylaxis Acute exacerbation of CHF (congestive heart failure) Echo on 06/01/2017- LVEF 35%, moderately dilated left ventricle, indeterminate diastolic function. Severely dilated left and right atria. No evidence of pulmonary hypertension or significant valvular dysfunction. LA 4.10 cm LHC on 06/03/2017- left ventricle is enlarged with severaly abnormal contractility, EF%25. Minimal artherosclerotic CAD. 40mg PO lasix. - Constitutional Vitals: Temp Pulse Resp BP Pulse Ox 98.2 F 90 15 104/73 90 06/06/17 07:45 06/06/17 07:45 06/06/17 07:45 06/06/17 07:45 06/06/17 07:45 General appearance: Present: A&O X 3, pleasant, no acute distress Internal Medicine: Result - Labs CBC & Chem 7: 06/06/17 04:50 06/06/17 04:50 Labs: Short CBC 06/06/17 Range/Units 04:50 WBC 8.8 (4.3-11.1) K/mcL Hgb 13.8 (11.5-15.4) g/dL Hct 43.9 (35.3-44.9) % Plt Count 193 (140-400) K/mcL Neutrophils # 5.2 (1.6-8.9) K/mcL BMP 06/05/17 06/06/17 21:30 04:50 Sodium 139 139 Potassium 3.8 4.4 Chloride 103 104 Carbon Dioxide 30 H 32 H BUN 15 13 Creatinine 0.65 0.56 L Glucose 99 93 Calcium 8.5 L 8.4 L Consult Discharge Plan - Plan Referrals: Radha Salgado CNP [Advanced Practice Nurse] - 06/15/17 10:00 am
[2017-06-06] MEDS: Budesonide/Formoterol 160/4.5 MDI IH SCH ×2 (10:59→20:09)
[2017-06-06 16:35] LABS: VBG Ionized Calcium 1.12 mmol/L (1.15-1.35)
[2017-06-06] MEDS: *HR* Rivaroxaban 10 MG TABLET PO SCH (19:03)
[2017-06-07 04:59] LABS: Basophils # 0.1 K/mcL (0.0-0.2); Basophils % 1.2 %; Eosinophils # 0.2 K/mcL (0.0-0.6); Eosinophils % 1.8 %; Hemoglobin 13.4 g/dL (11.5-15.4); Immature Granulocytes % 2.2 % (0-4); Lymphocytes # 2.4 K/mcL (0.6-4.6); Mean Corpuscular HGB Conc 31.9 g/dL (31.6-35.5); Mean Corpuscular Hemoglobin 29.1 pg (28.0-33.3); Mean Corpuscular Volume 91.3 fL (83.0-100.0); Mean Platelet Volume 10.2 fL (9.4-12.4); Monocytes # 1.3 K/mcL (0.0-1.3); Monocytes % 12.4 %; Neutrophils # 5.9 K/mcL (1.6-8.9); Platelet Count 214 K/mcL (140-400); Red Cell Distribution Width 15.9 % (11.5-14.5); Segmented Neutrophils % 58.4 %
[2017-06-07 05:26] LABS: BUN/Creatinine Ratio 21 (6-26); Blood Urea Nitrogen 12 mg/dL (8-23); Calcium 8.3 mg/dL (8.6-10.3); Carbon Dioxide 34 mEq/L (23-29); Chloride 103 mEq/L (98-107); Glucose 91 mg/dL (70-105); Osmolality,Calculated 289 (280-300); Potassium 3.9 mEq/L (3.5-5.1); Sodium 140 mEq/L (136-145); eGFR For African Americans > 60 (> 60); eGFR For Non-African Americans > 60 (> 60)
[2017-06-07 06:01] LABS: Magnesium 1.8 mg/dL (1.6-2.6); Phosphorous 3.3 mg/dL (2.7-4.5)
[2017-06-07] MEDS: Metoprolol XL (24 HR) Succ 25 MG TAB.ER.24H PO SCH (08:19)
[2017-06-07] MEDS: Insulin LISPRO 300 UNITS/3 ML VIAL SQ SCH (08:19)
[2017-06-07] MEDS: Furosemide 40 MG TABLET PO SCH (08:20)
[2017-06-07] MEDS: cefTRIAXone 2,000 MG in Water for inj. (sterile) 20 ML IVP SCH (08:20)
[2017-06-07] MEDS: Budesonide/Formoterol 160/4.5 MDI IH SCH (10:13)
--- NOTE | 2017-06-07 11:01 | Discharge Summary ---
Date of Encounter: 06/07/17 Time of Encounter: 11:01 - Discharge Medications Prescriptions: Furosemide [Lasix] 40 mg PO DAILY 30 Days #30 tablet Metoprolol XL (24 HR) Succ [Toprol Xl] 25 mg PO DAILY 30 Days #30 tab.er.24h NS MDD 25 Potassium Chloride 40 meq PO DAILY PRN 30 Days #30 tab.er.prt PRN Reason: Hypokalemia Home Medications: Alendronate Sodium [Fosamax] 10 mg PO DAILY 07/07/15 [History] Ergocalciferol (VITAMIN D2) [Vitamin D2 (50,000 UNIT)] 50,000 unit PO QWEEK [History] Cetirizine HCl [Zyrtec] 10 mg PO DAILY 05/31/17 [History] Albuterol Sulfate [Ventolin Hfa] 2 puff IH Q4H 06/01/17 [History] BuPROPion XL (24 HR) [Wellbutrin Xl] 150 mg PO DAILY 06/01/17 [History] Budesonide/Formoterol 160/4.5 [Symbicort 160/4.5] 2 puff IH BID 06/01/17 [ History] Dicyclomine [Bentyl] 10 mg PO QID 06/01/17 [History] Gabapentin [Neurontin] 1 cap PO TID 06/01/17 [History] Hydrocodone/Acetaminophen [[place] 5-325 Tablet] 1 tab PO BID PRN 06/01/17 [ History] Liraglutide [Victoza 2-Pedro] 0.6 mg IJ AD 06/01/17 [History] Montelukast [Singulair] 10 mg PO DAILY 06/01/17 [History] Omeprazole [PriLOSEC] 20 mg PO DAILY 06/01/17 [History] PARoxetine HCl [Paroxetine HCl] 20 mg PO DAILY 06/01/17 [History] Rivaroxaban [Xarelto] 20 mg PO DAILY 06/01/17 [History] Tizanidine HCl 4 mg PO BID PRN 06/01/17 [History] Furosemide [Lasix] 40 mg PO DAILY 30 Days #30 tablet 06/07/17 [Rx] Metoprolol XL (24 HR) Succ [Toprol Xl] 25 mg PO DAILY 30 Days #30 tab.er.24h NS MDD 25 06/07/17 [Rx] Potassium Chloride 40 meq PO DAILY PRN 30 Days #30 tab.er.prt 06/07/17 [Rx] Allergies/Adverse Reactions: 3 Allergy/AdvReac Type Severity Reaction Status Date / Time Amoxicillin AdvReac Vomiting Verified 07/07/15 11:29 cephalexin [From Keflex] AdvReac Vomiting Verified 07/07/15 11:29 doxycycline AdvReac Vomiting Verified 07/07/15 11:29 Sulfa (Sulfonamide AdvReac Vomiting Verified 07/07/15 11:29 Antibiotics) Procedures/tests Complete & Pending: Procedures Performed prior 72 hours Category Date Time Status EV arterial imaging UE RT Stat Y 06/04/17 11:34 Completed Date of admission: 05/31/17 19:20 Primary care physician: Zara Jay Consults: 05/31/17 20:19 Consult to Cardiology [CONS] Routine Comment: Consulting Provider: Cardiology [place] Reason for Consult: Afib with RVR, concern for CHF exacerbation Call Completed: No Consult to Pulmonology [CONS] Routine Consulting Provider: Pulm [facility] Reason for Consult: Afib with RVR, Sepsis, CHF exacerbation Call Completed: No 06/02/17 09:47 Consult to Invasive Line Access Team [CONS] Routine Reason for Consult: poor access Line Type: EPIV 06/04/17 09:47 Consult to Physical Therapy [CONS] Routine Comment: Evaluate, develop and implement POC Reason for Consult: stiffness 06/05/17 15:01 Consult to Pulmonology [CONS] Routine Consulting Provider: Pulm Crit [facility] Sleep [facility] Reason for Consult: LATIA/CPAP non compliance Call Completed: No Discharging clinician: Kavon Stanley - Patient Status Disposition: Home Health Service Condition: Fair Functional capacity at discharge: uses cane/walker Overall status at discharge: patient is back to baseline - Discharge Instructions Follow Up With: Radha Salgado CNP [Advanced Practice Nurse] - 06/15/17 10:00 am Hospital course: Ms. Leyva is a 61 year old female - Time Spent with Patient Total time spent providing and/or coordinating discharge services: - Constitutional Vitals: Temp Pulse Resp BP Pulse Ox 98.2 F 71 18 123/75 91 06/07/17 07:25 06/07/17 07:25 06/07/17 07:25 06/07/17 07:25 06/07/17 07:25 General appearance: Present: A&O X 3, pleasant, no acute distress
--- NOTE | 2017-06-07 11:31 | Physician Discharge Referral ---
Home Health/Hosp Referral Info Transfer to: Home Health Attending Provider: Jaden - Respiratory Orders Other Smoking Cessation: Smoking cessation has been advised. For more information, call the [place] Tobacco Quit Line at 7-823-RWJO-NOW. - Diet/Nutrition Diet/Nutrition Orders: Regular - Activity Activity Orders: Walker - Services Needed Following services are medically necessary services: Physical Therapy - Transfer Medications Prescriptions: Furosemide [Lasix] 40 mg PO DAILY 30 Days #30 tablet Metoprolol XL (24 HR) Succ [Toprol Xl] 25 mg PO DAILY 30 Days #30 tab.er.24h NS MDD 25 Potassium Chloride 40 meq PO DAILY PRN 30 Days #30 tab.er.prt PRN Reason: Hypokalemia Home Medications: Alendronate Sodium [Fosamax] 10 mg PO DAILY 07/07/15 [History] Ergocalciferol (VITAMIN D2) [Vitamin D2 (50,000 UNIT)] 50,000 unit PO QWEEK [History] Cetirizine HCl [Zyrtec] 10 mg PO DAILY 05/31/17 [History] Albuterol Sulfate [Ventolin Hfa] 2 puff IH Q4H 06/01/17 [History] BuPROPion XL (24 HR) [Wellbutrin Xl] 150 mg PO DAILY 06/01/17 [History] Budesonide/Formoterol 160/4.5 [Symbicort 160/4.5] 2 puff IH BID 06/01/17 [ History] Dicyclomine [Bentyl] 10 mg PO QID 06/01/17 [History] Gabapentin [Neurontin] 1 cap PO TID 06/01/17 [History] Hydrocodone/Acetaminophen [[place] 5-325 Tablet] 1 tab PO BID PRN 06/01/17 [ History] Liraglutide [[place]ictoza 2-Pedro] 0.6 mg IJ AD 06/01/17 [History] Montelukast [Singulair] 10 mg PO DAILY 06/01/17 [History] Omeprazole [PriLOSEC] 20 mg PO DAILY 06/01/17 [History] PARoxetine HCl [Paroxetine HCl] 20 mg PO DAILY 06/01/17 [History] Rivaroxaban [Xarelto] 20 mg PO DAILY 06/01/17 [History] Tizanidine HCl 4 mg PO BID PRN 06/01/17 [History] Furosemide [Lasix] 40 mg PO DAILY 30 Days #30 tablet 06/07/17 [Rx] Metoprolol XL (24 HR) Succ [Toprol Xl] 25 mg PO DAILY 30 Days #30 tab.er.24h NS MDD 25 06/07/17 [Rx] Potassium Chloride 40 meq PO DAILY PRN 30 Days #30 tab.er.prt 06/07/17 [Rx] Allergies/Adverse Reactions: 3 Allergy/AdvReac Type Severity Reaction Status Date / Time Amoxicillin AdvReac Vomiting Verified 07/07/15 11:29 cephalexin [From Keflex] AdvReac Vomiting Verified 07/07/15 11:29 doxycycline AdvReac Vomiting Verified 07/07/15 11:29 Sulfa (Sulfonamide AdvReac Vomiting Verified 07/07/15 11:29 Antibiotics) Certification: Further, I certify that my clinical findings support that this patient is homebound (i.e. absences from home require considerable and taxing effort and are for medical reasons or rastafari services or infrequently or short duration when for other reasons) because: Homebound Reason: Patient requires assistance of a person or device to safely leave home Attestation: My signature below is to certify that this patient is under my care and that I, or nurse practitioner, or a physician's assistant professor of dietetics working with me, has a face-to -face encounter with this patient.
[2017-06-07 11:53] VITALS: BP 125/109
== END 2017-06-07 13:15 | disposition home health service (06) | DRG 871 ==
LOC: ICNU 19:20 → 2NNU 06-02 11:19
PROVIDERS: ADMIT Hospitalist; ATTEND Hospitalist

== ENCOUNTER 2022-01-01 20:29 | Inpatient (IN) ==
[2022-01-01] MEDS ORDERED: Albuterol 2.5 MG/3 ML NEBULIZER IH ONE (21:00)
[2022-01-01 21:48] LABS: Basophils % 0.2 %; Eosinophils % 0.3 %; Hematocrit 47.5 % (35.3-44.9); Hemoglobin 15.7 g/dL (11.5-15.4); Lymphocytes # 1.9 K/mcL (0.6-4.6); Lymphocytes % 16.2 %; Mean Corpuscular HGB Conc 33.1 g/dL (31.6-35.5); Mean Corpuscular Hemoglobin 28.2 pg (28.0-33.3); Mean Corpuscular Volume 85.3 fL (83.0-100.0); Monocytes # 0.8 K/mcL (0.0-1.3); Platelet Count 125 K/mcL (140-400); Red Blood Count 5.57 M/mcL (3.82-4.97); Red Cell Distribution Width 17.4 % (11.5-14.5); Segmented Neutrophils % 75.3 %; White Blood Count 11.9 K/mcL (4.3-11.1)
[2022-01-01 21:51] LABS: VBG Ionized Calcium 1.04 mmol/L (1.15-1.35)
[2022-01-01 22:15] LABS: Influenza A PCR Negative (Negative); Influenza B PCR Negative (Negative); Resp. Syncytial Virus PCR Negative (Negative)
[2022-01-01 22:17] LABS: SARS-CoV-2 by PCR (In House) Negative (Negative)
[2022-01-01 22:34] LABS: Alanine Aminotransferase 37 Units/L (7-52); Albumin 2.4 g/dL (3.5-5.7); Albumin/Globulin Ratio 1.1 (1.1-2.2); Alkaline Phosphatase 133 Units/L (34-104); Aspartate Amino Transferase 26 Units/L (13-39); BUN/Creatinine Ratio 51 (6-26); Bilirubin,Total 1.4 mg/dL (0.3-1.0); Blood Urea Nitrogen 24 mg/dL (8-23); Calcium 8.2 mg/dL (8.6-10.3); Carbon Dioxide 36 mEq/L (23-29); Chloride 92 mEq/L (98-107); Globulin 2.2 g/dL (2.4-3.5); Glucose 232 mg/dL (70-105); Magnesium 1.6 mg/dL (1.6-2.6); Osmolality,Calculated 291 (280-300); Phosphorous 2.7 mg/dL (2.7-4.5); Potassium 3.1 mEq/L (3.5-5.1); Sodium 135 mEq/L (136-145); Thyroid Stimulating Hormone 2.663 mcIU/mL (0.340-5.600); Total Protein 4.6 g/dL (6.4-8.9); Troponin I < 0.03 ng/mL (< 0.04)
[2022-01-01 22:45] LABS: Bacteria,Urine Few per hpf (None-Few); Bilirubin,Urine Negative (Negative); Blood,Urine Large (Negative); Budding Yeast,Urine Few per hpf (None Seen); Clarity,Urine Ex.Turbid (Clear); Color,Urine Dark-Yellow (Yellow); Glucose,Urine (UA) Normal (Normal); Ketones,Urine Negative (Negative); Leukocyte Esterase,Urine Large (Negative); Mucus,Urine Few per lpf (None-Few); Nitrite,Urine Negative (Negative); Protein,Urine 70 mg/dL (Neg-Trace); RBC,Urine TNTC per hpf (0-3); Specific Gravity,Urine 1.019 (1.010-1.025); Squamous Epithelial Cell,Urine Few per hpf (None-Few); WBC,Urine TNTC per hpf (0-3)
[2022-01-01] MEDS ORDERED: 0.9 % Sodium Chloride 1,000 ML IV ONE (23:00)
[2022-01-01] MEDS ORDERED: Magnesium Sulfate 1 GM/102 ML PIGGYBACK IVPB ONE (23:53)
[2022-01-02] MEDS: Albumin 25% 25gram/100mL 25 GM/100 ML IV.SOLN IVC SCH ×2 (00:27→02:12)
[2022-01-02] MEDS ORDERED: Furosemide 40 MG/4 ML VIAL IVP ONE (01:14)
[2022-01-02] MEDS ORDERED: Naloxone 0.4 MG/ML INJ IVP PRN ×2 (06:04→06:05)
[2022-01-02] MEDS ORDERED: Melatonin 3 MG TABLET PO PRN (06:05)
[2022-01-02] MEDS ORDERED: Ondansetron 4 MG/2 ML VIAL IVP PRN (06:05)
[2022-01-02] MEDS ORDERED: *HR* Promethazine 25 MG/ML VIAL IM PRN (06:05)
[2022-01-02] MEDS ORDERED: Ringers Solution, Lactated 1,000 ML IVC ONE (06:08)
[2022-01-02] MEDS ORDERED: Ipratropium/Albuterol Neb 3 ML IH PRN (06:08)
[2022-01-02] MEDS ORDERED: Dextrose Gel 15 GM/37.5 ML TUBE PO PRN ×2 (06:26)
[2022-01-02] MEDS ORDERED: D5% in Water 1,000 ML IVC PRN (06:26)
[2022-01-02] MEDS ORDERED: Metoprolol XL (24 HR) Succ 50 MG TAB.ER.24H PO SCH ×2 (09:00→21:00)
[2022-01-02] MEDS ORDERED: Albumin 25% 25gram/100mL 25 GM/100 ML IV.SOLN IVPB ONE (10:10)
[2022-01-02] MEDS: Insulin LISPRO 300 UNITS/3 ML VIAL SUBQ SCH ×4 (10:49→23:42)
[2022-01-02] MEDS: Cefepime HCl 2,000 MG in 0.9 % Sodium Chloride 10 ML IVP SCH ×3 (11:22→23:43)
[2022-01-02 11:36] LABS: Basophils % 0.1 %; Hematocrit 39.4 % (35.3-44.9)
[2022-01-02 11:38] LABS: Eosinophils # 0.1 K/mcL (0.0-0.6); Eosinophils % 0.7 %; Immature Platelets 3.4 % (1.1-6.1); Lymphocytes # 2.1 K/mcL (0.6-4.6); Lymphocytes % 23.2 %; Mean Corpuscular Hemoglobin 27.9 pg (28.0-33.3); Mean Corpuscular Volume 84.5 fL (83.0-100.0); Mean Platelet Volume 9.8 fL (9.4-12.4); Monocytes # 0.6 K/mcL (0.0-1.3); Monocytes % 6.4 %; Neutrophils # 6.1 K/mcL (1.6-8.9); Platelet Count 113 K/mcL (140-400); Red Blood Count 4.66 M/mcL (3.82-4.97); Segmented Neutrophils % 68.6 %; White Blood Count 8.9 K/mcL (4.3-11.1)
[2022-01-02 11:54] LABS: Magnesium 1.6 mg/dL (1.6-2.6)
[2022-01-02 12:07] LABS: Alanine Aminotransferase 28 Units/L (7-52); Albumin 3.1 g/dL (3.5-5.7); Albumin/Globulin Ratio 1.9 (1.1-2.2); Alkaline Phosphatase 109 Units/L (34-104); Aspartate Amino Transferase 21 Units/L (13-39); BUN/Creatinine Ratio 55 (6-26); Bilirubin,Total 1.5 mg/dL (0.3-1.0); Blood Urea Nitrogen 22 mg/dL (8-23); Calcium 8.4 mg/dL (8.6-10.3); Carbon Dioxide 41 mEq/L (23-29); Chloride 93 mEq/L (98-107); Globulin 1.6 g/dL (2.4-3.5); Glucose 178 mg/dL (70-105); Osmolality,Calculated 294 (280-300); Potassium 2.5 mEq/L (3.5-5.1); Sodium 138 mEq/L (136-145); Total Protein 4.7 g/dL (6.4-8.9)
[2022-01-02] MEDS: Ipratropium/Albuterol Neb 3 ML IH SCH ×3 (15:33→23:09)
[2022-01-02 15:44] LABS: ABG Base Excess 8 mEq/L (-2 to 3); ABG HCO3 33 mEq/L (21-27); ABG Oxygen Saturation 96 % (95-98); ABG PCO2 44 mmHg (35-45); ABG PH 7.48 pH Units (7.32-7.45); ABG PO2 77 mmHg (85-104); ABG TCO2 34 mEq/L (20-26)
[2022-01-02] MEDS: *HR* Rivaroxaban 10 MG TABLET PO SCH (16:53)
[2022-01-02 18:56] LABS: BUN/Creatinine Ratio 40 (6-26); Blood Urea Nitrogen 21 mg/dL (8-23); Calcium 8.4 mg/dL (8.6-10.3); Carbon Dioxide 38 mEq/L (23-29); Chloride 94 mEq/L (98-107); Glucose 174 mg/dL (70-105); Osmolality,Calculated 291 (280-300); Sodium 137 mEq/L (136-145)
[2022-01-02 19:28] LABS: Estimated Average Glucose 217 mg/dl; Hemoglobin A1C 9.2 %
[2022-01-02] MEDS ORDERED: Insulin DETEMIR 100 UNIT/ML X5UNITS SUBQ SCH (21:00)
[2022-01-02] MEDS: Insulin DETEMIR 100 UNIT/ML X5UNITS SUBQ SCH (23:43)
[2022-01-03 01:25] LABS: Red Cell Distribution Width 17.2 % (11.5-14.5)
[2022-01-03 01:27] LABS: Basophils % 0.4 %; Eosinophils # 0.1 K/mcL (0.0-0.6); Eosinophils % 0.6 %; Hematocrit 37.8 % (35.3-44.9); Hemoglobin 12.8 g/dL (11.5-15.4); Immature Granulocytes % 1.3 % (0-4); Immature Platelets 3.2 % (1.1-6.1); Lymphocytes % 25.5 %; Mean Corpuscular HGB Conc 33.9 g/dL (31.6-35.5); Mean Corpuscular Hemoglobin 28.5 pg (28.0-33.3); Mean Corpuscular Volume 84.2 fL (83.0-100.0); Monocytes # 0.5 K/mcL (0.0-1.3); Monocytes % 6.2 %; Neutrophils # 5.1 K/mcL (1.6-8.9); Nucleated Red Blood Cells 0.4 /100 WBC (0); Platelet Count 105 K/mcL (140-400); Red Blood Count 4.49 M/mcL (3.82-4.97); White Blood Count 7.7 K/mcL (4.3-11.1)
[2022-01-03] MEDS: *HR* OxyCODONE Immed Rel 5 MG TABLET PO PRN ×2 (01:28→21:53)
[2022-01-03 01:45] LABS: Alanine Aminotransferase 26 Units/L (7-52); Alkaline Phosphatase 96 Units/L (34-104); Aspartate Amino Transferase 26 Units/L (13-39); BUN/Creatinine Ratio 56 (6-26); Bilirubin,Total 1.8 mg/dL (0.3-1.0); Blood Urea Nitrogen 20 mg/dL (8-23); Calcium 8.1 mg/dL (8.6-10.3); Carbon Dioxide 36 mEq/L (23-29); Chloride 98 mEq/L (98-107); Globulin 1.5 g/dL (2.4-3.5); Glucose 127 mg/dL (70-105); Osmolality,Calculated 292 (280-300); Sodium 139 mEq/L (136-145); Total Protein 4.5 g/dL (6.4-8.9)
[2022-01-03 01:47] LABS: BUN/Creatinine Ratio 49 (6-26); Blood Urea Nitrogen 20 mg/dL (8-23); Calcium 8.4 mg/dL (8.6-10.3); Carbon Dioxide 38 mEq/L (23-29); Chloride 98 mEq/L (98-107); Glucose 131 mg/dL (70-105); Osmolality,Calculated 292 (280-300); Platelet Estimate Normal (Normal); Potassium 3.1 mEq/L (3.5-5.1); Sodium 139 mEq/L (136-145)
[2022-01-03] MEDS: Calcium Gluconate 1gm/50mL 1 GM/50 ML BAG IVPB SCH ×2 (03:26→04:29)
[2022-01-03] MEDS: Ipratropium/Albuterol Neb 3 ML IH SCH ×7 (03:56→23:17)
[2022-01-03] MEDS: Insulin LISPRO 300 UNITS/3 ML VIAL SUBQ SCH ×4 (07:39→19:55)
[2022-01-03] MEDS: Cefepime HCl 2,000 MG in 0.9 % Sodium Chloride 10 ML IVP SCH (08:06)
[2022-01-03] MEDS: Furosemide 40 MG TABLET PO SCH ×2 (08:06→16:54)
[2022-01-03] MEDS: cefTRIAXone 1,000 MG in Water for inj. (sterile) 10 ML IVP SCH (13:24)
[2022-01-03] MEDS: *HR* HYDROcodone/Acet 5/325 mg TABLET PO PRN (13:36)
[2022-01-03] MEDS: *HR* Rivaroxaban 10 MG TABLET PO SCH (16:53)
[2022-01-03] MEDS: *HR* Digoxin 0.5 MG/2 ML AMPUL IVP SCH ×2 (16:54→23:33)
[2022-01-03] MEDS: Insulin DETEMIR 100 UNIT/ML X5UNITS SUBQ SCH (20:00)
[2022-01-04] MEDS: Ipratropium/Albuterol Neb 3 ML IH SCH ×5 (03:58→20:15)
[2022-01-04 05:49] LABS: BUN/Creatinine Ratio 41 (6-26); Blood Urea Nitrogen 18 mg/dL (8-23); Calcium 8.3 mg/dL (8.6-10.3); Carbon Dioxide 40 mEq/L (23-29); Chloride 98 mEq/L (98-107); Glucose 90 mg/dL (70-105); Magnesium 1.8 mg/dL (1.6-2.6); Osmolality,Calculated 293 (280-300); Phosphorous 2.2 mg/dL (2.7-4.5); Potassium 3.2 mEq/L (3.5-5.1); Sodium 141 mEq/L (136-145)
[2022-01-04] MEDS: *HR* Digoxin 0.5 MG/2 ML AMPUL IVP SCH ×2 (05:59→10:52)
[2022-01-04] MEDS: *HR* HYDROcodone/Acet 5/325 mg TABLET PO PRN ×2 (06:08→13:44)
[2022-01-04] MEDS: Insulin LISPRO 300 UNITS/3 ML VIAL SUBQ SCH ×4 (07:44→22:59)
[2022-01-04] MEDS: Furosemide 40 MG TABLET PO SCH (07:51)
[2022-01-04] MEDS: Acetaminophen 325 MG TABLET PO PRN ×2 (10:52→21:26)
[2022-01-04] MEDS: cefTRIAXone 1,000 MG in Water for inj. (sterile) 10 ML IVP SCH (10:59)
[2022-01-04] MEDS ORDERED: Fluconazole 100 MG TABLET PO ONE (15:00)
[2022-01-04] MEDS: *HR* Rivaroxaban 10 MG TABLET PO SCH (15:23)
[2022-01-04] MEDS: *HR* OxyCODONE Immed Rel 5 MG TABLET PO PRN (21:09)
[2022-01-04] MEDS: Furosemide 40 MG/4 ML VIAL IVP SCH (21:12)
[2022-01-04] MEDS: Insulin DETEMIR 100 UNIT/ML X5UNITS SUBQ SCH (21:27)
[2022-01-05 02:31] LABS: BUN/Creatinine Ratio 42 (6-26); Blood Urea Nitrogen 18 mg/dL (8-23); Calcium 7.9 mg/dL (8.6-10.3); Carbon Dioxide 35 mEq/L (23-29); Chloride 96 mEq/L (98-107); Glucose 165 mg/dL (70-105); Osmolality,Calculated 290 (280-300); Potassium 3.4 mEq/L (3.5-5.1); Sodium 137 mEq/L (136-145)
[2022-01-05 03:00] LABS: Basophils % 0.2 %; Eosinophils # 0.1 K/mcL (0.0-0.6); Eosinophils % 0.9 %; Hemoglobin 13.3 g/dL (11.5-15.4); Immature Granulocytes % 2.6 % (0-4); Immature Platelets 4.4 % (1.1-6.1); Lymphocytes # 2.2 K/mcL (0.6-4.6); Mean Corpuscular HGB Conc 32.4 g/dL (31.6-35.5); Mean Corpuscular Hemoglobin 28.2 pg (28.0-33.3); Mean Corpuscular Volume 86.9 fL (83.0-100.0); Mean Platelet Volume 10.4 fL (9.4-12.4); Monocytes # 0.8 K/mcL (0.0-1.3); Monocytes % 7.9 %; Nucleated Red Blood Cells 0.2 /100 WBC (0); Red Blood Count 4.72 M/mcL (3.82-4.97); Red Cell Distribution Width 17.9 % (11.5-14.5); Segmented Neutrophils % 67.4 %; White Blood Count 10.3 K/mcL (4.3-11.1)
[2022-01-05 03:08] LABS: Neutrophils # 6.9 K/mcL (1.6-8.9); Platelet Count 86 K/mcL (140-400)
[2022-01-05] MEDS: Ipratropium/Albuterol Neb 3 ML IH SCH ×7 (04:20→22:55)
[2022-01-05] MEDS: *HR* OxyCODONE Immed Rel 5 MG TABLET PO PRN (06:24)
[2022-01-05] MEDS: Insulin LISPRO 300 UNITS/3 ML VIAL SUBQ SCH ×4 (08:02→20:12)
[2022-01-05] MEDS: Furosemide 40 MG/4 ML VIAL IVP SCH ×2 (08:03→22:16)
[2022-01-05] MEDS: Nystatin POWDER 30 GM BOTTLE TP SCH ×2 (12:33→20:32)
[2022-01-05] MEDS ORDERED: Potassium Chloride Elixir 20 MEQ/15 ML UDC PO ONE (13:20)
[2022-01-05] MEDS: *HR* Rivaroxaban 10 MG TABLET PO SCH (16:29)
[2022-01-05] MEDS: Acetaminophen 325 MG TABLET PO PRN (20:31)
[2022-01-05] MEDS: Insulin DETEMIR 100 UNIT/ML X5UNITS SUBQ SCH (20:31)
[2022-01-06] MEDS: Ipratropium/Albuterol Neb 3 ML IH SCH ×6 (04:09→23:24)
[2022-01-06 05:12] LABS: Basophils # 0.1 K/mcL (0.0-0.2); Basophils % 0.8 %; Eosinophils # 0.1 K/mcL (0.0-0.6); Eosinophils % 1.1 %; Hematocrit 40.7 % (35.3-44.9); Hemoglobin 13.3 g/dL (11.5-15.4); Lymphocytes # 2.3 K/mcL (0.6-4.6); Lymphocytes % 24.5 %; Mean Corpuscular HGB Conc 32.7 g/dL (31.6-35.5); Mean Corpuscular Hemoglobin 28.2 pg (28.0-33.3); Mean Corpuscular Volume 86.4 fL (83.0-100.0); Mean Platelet Volume 9.9 fL (9.4-12.4); Monocytes # 0.8 K/mcL (0.0-1.3); Monocytes % 8.5 %; Neutrophils # 5.9 K/mcL (1.6-8.9); Red Blood Count 4.71 M/mcL (3.82-4.97); Red Cell Distribution Width 18.2 % (11.5-14.5); Segmented Neutrophils % 62.1 %; White Blood Count 9.5 K/mcL (4.3-11.1)
[2022-01-06 05:13] LABS: Platelet Count 88 K/mcL (140-400)
[2022-01-06 08:05] LABS: BUN/Creatinine Ratio 40 (6-26); Blood Urea Nitrogen 19 mg/dL (8-23); Calcium 8.1 mg/dL (8.6-10.3); Carbon Dioxide 39 mEq/L (23-29); Chloride 95 mEq/L (98-107); Glucose 163 mg/dL (70-105); Magnesium 1.5 mg/dL (1.6-2.6); Osmolality,Calculated 286 (280-300); Potassium 4.1 mEq/L (3.5-5.1); Sodium 135 mEq/L (136-145)
[2022-01-06] MEDS: Furosemide 40 MG/4 ML VIAL IVP SCH ×2 (08:41→22:23)
[2022-01-06] MEDS: Insulin LISPRO 300 UNITS/3 ML VIAL SUBQ SCH ×4 (08:53→22:23)
[2022-01-06] MEDS: Nystatin POWDER 30 GM BOTTLE TP SCH ×2 (08:58→22:24)
[2022-01-06 12:41] LABS: Bacteria,Urine Few per hpf (None-Few); Bilirubin,Urine Negative (Negative); Blood,Urine Negative (Negative); Budding Yeast,Urine Few per hpf (None Seen); Clarity,Urine Clear (Clear); Color,Urine Light-Yellow (Yellow); Glucose,Urine (UA) Normal (Normal); Ketones,Urine Negative (Negative); Leukocyte Esterase,Urine Negative (Negative); Nitrite,Urine Negative (Negative); PH,Urine 6.5 pH Units (5.0-8.0); Protein,Urine Negative (Neg-Trace); RBC,Urine 0-3 per hpf (0-3); Specific Gravity,Urine 1.008 (1.010-1.025); Squamous Epithelial Cell,Urine Few per hpf (None-Few); Urobilinogen,Urine Normal (Normal)
[2022-01-06] MEDS: Magnesium Oxide 400 MG TABLET PO SCH (13:07)
[2022-01-06] MEDS: *HR* HYDROcodone/Acet 5/325 mg TABLET PO PRN ×2 (14:16→23:40)
[2022-01-06] MEDS: *HR* Rivaroxaban 10 MG TABLET PO SCH (17:16)
[2022-01-06] MEDS: Acetaminophen 325 MG TABLET PO PRN (17:52)
[2022-01-06] MEDS: Insulin DETEMIR 100 UNIT/ML X5UNITS SUBQ SCH (22:24)
[2022-01-07] MEDS: Ipratropium/Albuterol Neb 3 ML IH SCH ×6 (03:56→23:51)
[2022-01-07] MEDS: Insulin LISPRO 300 UNITS/3 ML VIAL SUBQ SCH ×4 (05:51→21:22)
[2022-01-07 06:42] LABS: Basophils # 0.1 K/mcL (0.0-0.2); Basophils % 0.5 %; Eosinophils # 0.1 K/mcL (0.0-0.6); Eosinophils % 1.3 %; Hematocrit 40.1 % (35.3-44.9); Immature Granulocytes % 2.7 % (0-4); Lymphocytes # 2.5 K/mcL (0.6-4.6); Mean Corpuscular HGB Conc 32.4 g/dL (31.6-35.5); Mean Corpuscular Volume 86.2 fL (83.0-100.0); Mean Platelet Volume 9.8 fL (9.4-12.4); Monocytes # 0.7 K/mcL (0.0-1.3); Monocytes % 7.2 %; Neutrophils # 6.6 K/mcL (1.6-8.9); Platelet Count 103 K/mcL (140-400); Red Blood Count 4.65 M/mcL (3.82-4.97); Segmented Neutrophils % 64.3 %; White Blood Count 10.3 K/mcL (4.3-11.1)
[2022-01-07 07:09] LABS: BUN/Creatinine Ratio 50 (6-26); Blood Urea Nitrogen 20 mg/dL (8-23); Calcium 8.1 mg/dL (8.6-10.3); Carbon Dioxide 37 mEq/L (23-29); Chloride 93 mEq/L (98-107); Glucose 144 mg/dL (70-105); Magnesium 1.6 mg/dL (1.6-2.6); Osmolality,Calculated 285 (280-300); Potassium 3.8 mEq/L (3.5-5.1); Sodium 135 mEq/L (136-145)
[2022-01-07] MEDS: Furosemide 40 MG/4 ML VIAL IVP SCH ×2 (09:35→21:36)
[2022-01-07] MEDS: Magnesium Oxide 400 MG TABLET PO SCH ×2 (09:35→21:36)
[2022-01-07] MEDS: Nystatin POWDER 30 GM BOTTLE TP SCH ×2 (09:37→21:36)
[2022-01-07] MEDS ORDERED: Lidocaine -MPF 2% 5 ML VIAL ONE (13:12)
[2022-01-07] MEDS ORDERED: Amiodarone Premix 150 MG/100 ML BAG IVPB ONE (15:42)
[2022-01-07] MEDS ORDERED: Amiodarone Premix 360 MG/200 ML BAG IVC ONE (15:47)
[2022-01-07] MEDS: *HR* Rivaroxaban 10 MG TABLET PO SCH (18:23)
[2022-01-07] MEDS: Insulin DETEMIR 100 UNIT/ML X5UNITS SUBQ SCH (21:36)
[2022-01-07] MEDS: Amiodarone Premix 360 MG/200 ML BAG IVC SCH (23:30)
[2022-01-08] MEDS: Ipratropium/Albuterol Neb 3 ML IH SCH ×6 (03:58→23:10)
[2022-01-08 05:38] LABS: BUN/Creatinine Ratio 56 (6-26); Blood Urea Nitrogen 20 mg/dL (8-23); Calcium 7.8 mg/dL (8.6-10.3); Carbon Dioxide 36 mEq/L (23-29); Chloride 92 mEq/L (98-107); Glucose 141 mg/dL (70-105); Magnesium 1.9 mg/dL (1.6-2.6); Osmolality,Calculated 279 (280-300); Potassium 3.7 mEq/L (3.5-5.1); Sodium 132 mEq/L (136-145)
[2022-01-08] MEDS ORDERED: *HR* Heparin 5,000 UNIT/ML VIAL IVP ONE (07:46)
[2022-01-08] MEDS ORDERED: *HR* Heparin 5,000 UNIT/ML VIAL IVP PRN ×2 (07:46)
[2022-01-08 09:42] LABS: Hemoglobin 13.1 g/dL (11.5-15.4)
[2022-01-08] MEDS: Insulin LISPRO 300 UNITS/3 ML VIAL SUBQ SCH ×4 (09:43→20:35)
[2022-01-08 09:44] LABS: Hematocrit 39.3 % (35.3-44.9); Immature Platelets 4.5 % (1.1-6.1); Mean Corpuscular HGB Conc 33.3 g/dL (31.6-35.5); Mean Corpuscular Hemoglobin 28.4 pg (28.0-33.3); Mean Corpuscular Volume 85.1 fL (83.0-100.0); Mean Platelet Volume 9.8 fL (9.4-12.4); Red Blood Count 4.62 M/mcL (3.82-4.97); Red Cell Distribution Width 18.8 % (11.5-14.5); White Blood Count 11.9 K/mcL (4.3-11.1)
[2022-01-08] MEDS: Magnesium Oxide 400 MG TABLET PO SCH ×2 (09:58→22:25)
[2022-01-08] MEDS: Nystatin POWDER 30 GM BOTTLE TP SCH ×2 (09:58→22:25)
[2022-01-08] MEDS: Furosemide 40 MG/4 ML VIAL IVP SCH (09:58)
[2022-01-08] MEDS: Amiodarone Premix 360 MG/200 ML BAG IVC SCH ×2 (10:00→23:01)
[2022-01-08 10:08] LABS: INR 3.7; Prothrombin Time 40.8 Seconds (9.4-12.1)
[2022-01-08] MEDS: Heparin 25,000UNIT/250ML 1/2NS 25,000 UNIT/250 ML IV.SOLN IVC SCH (12:21)
[2022-01-08] MEDS: *HR* HYDROcodone/Acet 5/325 mg TABLET PO PRN (16:58)
[2022-01-08] MEDS: Piperacillin/Tazobactam 3.375 GM in 0.9 % Sodium Chloride Mini Bag 100 ML IVPB SCH (16:59)
[2022-01-08] MEDS: Insulin DETEMIR 100 UNIT/ML X5UNITS SUBQ SCH (22:24)
[2022-01-08] MEDS: *HR* Amiodarone 200 MG TABLET PO SCH (22:25)
[2022-01-09] MEDS: *HR* HYDROcodone/Acet 5/325 mg TABLET PO PRN (00:55)
[2022-01-09] MEDS: Piperacillin/Tazobactam 3.375 GM in 0.9 % Sodium Chloride Mini Bag 100 ML IVPB SCH ×3 (01:50→15:17)
[2022-01-09] MEDS ORDERED: *HR* LORazepam 2 MG/ML VIAL IVP ONE (03:15)
[2022-01-09] MEDS: Ipratropium/Albuterol Neb 3 ML IH SCH ×6 (04:35→23:43)
[2022-01-09 06:59] LABS: Basophils # 0.1 K/mcL (0.0-0.2); Basophils % 0.5 %; Eosinophils # 0.1 K/mcL (0.0-0.6); Eosinophils % 0.9 %; Hematocrit 39.3 % (35.3-44.9); Hemoglobin 13.1 g/dL (11.5-15.4); Immature Platelets 4.7 % (1.1-6.1); Lymphocytes # 2.1 K/mcL (0.6-4.6); Lymphocytes % 16.3 %; Mean Corpuscular HGB Conc 33.3 g/dL (31.6-35.5); Mean Corpuscular Hemoglobin 28.2 pg (28.0-33.3); Mean Corpuscular Volume 84.7 fL (83.0-100.0); Mean Platelet Volume 9.9 fL (9.4-12.4); Monocytes # 0.5 K/mcL (0.0-1.3); Monocytes % 3.6 %; Neutrophils # 9.9 K/mcL (1.6-8.9); Platelet Count 85 K/mcL (140-400); Red Blood Count 4.64 M/mcL (3.82-4.97); Red Cell Distribution Width 19.2 % (11.5-14.5); Segmented Neutrophils % 76.7 %; White Blood Count 12.9 K/mcL (4.3-11.1)
[2022-01-09 07:17] LABS: BUN/Creatinine Ratio 46 (6-26); Blood Urea Nitrogen 24 mg/dL (8-23); Calcium 7.9 mg/dL (8.6-10.3); Carbon Dioxide 36 mEq/L (23-29); Chloride 92 mEq/L (98-107); Glucose 151 mg/dL (70-105); Osmolality,Calculated 279 (280-300); Sodium 131 mEq/L (136-145)
[2022-01-09 07:34] LABS: Heparin anti-factor XA UFH 0.89 IU/mL (0.30-0.70); INR 1.9; Prothrombin Time 20.8 Seconds (9.4-12.1)
[2022-01-09 07:36] LABS: Activated Partial Thrombo Time 60.1 Seconds (26.0-36.0)
[2022-01-09] MEDS: Furosemide 40 MG/4 ML VIAL IVP SCH (09:25)
[2022-01-09] MEDS: *HR* Amiodarone 200 MG TABLET PO SCH ×2 (09:25→21:40)
[2022-01-09] MEDS: Insulin LISPRO 300 UNITS/3 ML VIAL SUBQ SCH ×4 (09:26→21:39)
[2022-01-09] MEDS: Nystatin POWDER 30 GM BOTTLE TP SCH (09:26)
[2022-01-09] MEDS: Magnesium Oxide 400 MG TABLET PO SCH ×2 (09:26→21:40)
[2022-01-09 09:43] LABS: ABG Base Excess 8 mEq/L (-2 to 3); ABG HCO3 34 mEq/L (21-27); ABG Oxygen Saturation 89 % (95-98); ABG PCO2 50 mmHg (35-45); ABG PH 7.44 pH Units (7.32-7.45); ABG PO2 56 mmHg (85-104); ABG TCO2 35 mEq/L (20-26)
[2022-01-09] MEDS ORDERED: *HR* Digoxin 0.5 MG/2 ML AMPUL IVP ONE (11:37)
[2022-01-09] MEDS ORDERED: Naloxone 0.4 MG/ML INJ IVP PRN (12:50)
[2022-01-09] MEDS: Heparin 25,000UNIT/250ML 1/2NS 25,000 UNIT/250 ML IV.SOLN IVC SCH ×3 (13:51→22:29)
[2022-01-09] MEDS: Norepinephrine 4 MG/254 ML IV.SOLN IVC SCH (13:57)
[2022-01-09] MEDS ORDERED: 0.9 % Sodium Chloride 1,000 ML ONE (14:09)
[2022-01-09] MEDS: Albumin Human 5% 12.5 GM/250 ML IV.SOLN IVC SCH ×2 (15:52→20:04)
[2022-01-09] MEDS: *HR* Digoxin 0.5 MG/2 ML AMPUL IVP SCH (17:02)
[2022-01-09] MEDS: Insulin DETEMIR 100 UNIT/ML X5UNITS SUBQ SCH (21:42)
[2022-01-10] MEDS ORDERED: Furosemide 40 MG/4 ML VIAL IVP ONE (00:15)
[2022-01-10] MEDS: Piperacillin/Tazobactam 3.375 GM in 0.9 % Sodium Chloride Mini Bag 100 ML IVPB SCH ×3 (00:45→15:53)
[2022-01-10] MEDS: Nystatin POWDER 30 GM BOTTLE TP SCH ×3 (00:46→21:36)
[2022-01-10] MEDS: *HR* Digoxin 0.5 MG/2 ML AMPUL IVP SCH (00:46)
[2022-01-10] MEDS: Norepinephrine 4 MG/254 ML IV.SOLN IVC SCH ×3 (00:47→23:34)
[2022-01-10] MEDS: Ipratropium/Albuterol Neb 3 ML IH SCH ×6 (04:13→23:50)
[2022-01-10 05:16] LABS: Basophils # 0.1 K/mcL (0.0-0.2); Basophils % 0.7 %; Eosinophils # 0.1 K/mcL (0.0-0.6); Eosinophils % 0.9 %; Hematocrit 37.7 % (35.3-44.9); Hemoglobin 12.5 g/dL (11.5-15.4); Immature Granulocytes % 1.5 % (0-4); Lymphocytes # 2.9 K/mcL (0.6-4.6); Lymphocytes % 19.2 %; Mean Corpuscular HGB Conc 33.2 g/dL (31.6-35.5); Mean Corpuscular Hemoglobin 28.2 pg (28.0-33.3); Mean Corpuscular Volume 84.9 fL (83.0-100.0); Mean Platelet Volume 9.5 fL (9.4-12.4); Monocytes # 0.7 K/mcL (0.0-1.3); Monocytes % 4.9 %; Neutrophils # 10.9 K/mcL (1.6-8.9); Platelet Count 102 K/mcL (140-400); Red Blood Count 4.44 M/mcL (3.82-4.97); Red Cell Distribution Width 19.3 % (11.5-14.5); Segmented Neutrophils % 72.8 %
[2022-01-10 05:34] LABS: Activated Partial Thrombo Time 136.8 Seconds (26.0-36.0); BUN/Creatinine Ratio 48 (6-26); Blood Urea Nitrogen 21 mg/dL (8-23); Calcium 7.8 mg/dL (8.6-10.3); Carbon Dioxide 34 mEq/L (23-29); Chloride 96 mEq/L (98-107); Glucose 108 mg/dL (70-105); Osmolality,Calculated 290 (280-300); Potassium 3.7 mEq/L (3.5-5.1); Sodium 138 mEq/L (136-145)
[2022-01-10] MEDS ORDERED: Lidocaine -MPF 1% 5 ML AMPUL INFILT ONE (07:28)
[2022-01-10] MEDS: *HR* Amiodarone 200 MG TABLET PO SCH ×3 (07:33→21:34)
[2022-01-10] MEDS: Magnesium Oxide 400 MG TABLET PO SCH ×2 (07:34→21:22)
[2022-01-10] MEDS: Furosemide 40 MG/4 ML VIAL IVP SCH (07:38)
[2022-01-10 09:55] LABS: INR 1.9; Prothrombin Time 21.5 Seconds (9.4-12.1)
[2022-01-10] MEDS: Insulin LISPRO 300 UNITS/3 ML VIAL SUBQ SCH ×4 (10:38→21:36)
[2022-01-10 11:47] LABS: Albumin 2.4 g/dL (3.5-5.7); Albumin/Globulin Ratio 1.4 (1.1-2.2); Bilirubin,Direct 1.9 mg/dL (0.0-0.2); Bilirubin,Indirect 1.7 mg/dL (0.0-1.0); Bilirubin,Total 3.6 mg/dL (0.3-1.0); Globulin 1.7 g/dL (2.4-3.5); Magnesium 1.7 mg/dL (1.6-2.6); Total Protein 4.1 g/dL (6.4-8.9)
[2022-01-10] MEDS: Furosemide 240 MG in 0.9 % Sodium Chloride 96 ML IVC SCH (14:25)
[2022-01-10 15:12] LABS: BUN/Creatinine Ratio 55 (6-26); Blood Urea Nitrogen 21 mg/dL (8-23); Calcium 7.7 mg/dL (8.6-10.3); Carbon Dioxide 36 mEq/L (23-29); Chloride 97 mEq/L (98-107); Glucose 109 mg/dL (70-105); Osmolality,Calculated 292 (280-300); Potassium 3.6 mEq/L (3.5-5.1); Sodium 139 mEq/L (136-145)
[2022-01-10] MEDS ORDERED: Furosemide 40 MG/4 ML VIAL IVP SCH (17:00)
[2022-01-10] MEDS: *HR* HYDROcodone/Acet 5/325 mg TABLET PO PRN (21:22)
[2022-01-10] MEDS: Heparin 25,000UNIT/250ML 1/2NS 25,000 UNIT/250 ML IV.SOLN IVC SCH (21:35)
[2022-01-10] MEDS: Insulin DETEMIR 100 UNIT/ML X5UNITS SUBQ SCH (21:36)
[2022-01-11] MEDS ORDERED: Magnesium Sulfate 1 GM/102 ML PIGGYBACK IVPB ONE (00:11)
[2022-01-11] MEDS: Piperacillin/Tazobactam 3.375 GM in 0.9 % Sodium Chloride Mini Bag 100 ML IVPB SCH ×3 (00:31→17:45)
[2022-01-11 01:01] LABS: BUN/Creatinine Ratio 54 (6-26); Blood Urea Nitrogen 20 mg/dL (8-23); Calcium 7.7 mg/dL (8.6-10.3); Carbon Dioxide 36 mEq/L (23-29); Chloride 97 mEq/L (98-107); Glucose 91 mg/dL (70-105); Magnesium 1.8 mg/dL (1.6-2.6); Osmolality,Calculated 290 (280-300); Potassium 3.7 mEq/L (3.5-5.1); Sodium 139 mEq/L (136-145)
[2022-01-11] MEDS: Ipratropium/Albuterol Neb 3 ML IH SCH ×5 (04:06→20:50)
[2022-01-11 05:48] LABS: Basophils # 0.1 K/mcL (0.0-0.2); Basophils % 0.7 %; Eosinophils # 0.2 K/mcL (0.0-0.6); Eosinophils % 0.9 %; Hematocrit 38.8 % (35.3-44.9); Hemoglobin 12.9 g/dL (11.5-15.4); Immature Granulocytes % 1.7 % (0-4); Lymphocytes % 16.6 %; Mean Corpuscular HGB Conc 33.2 g/dL (31.6-35.5); Mean Corpuscular Hemoglobin 28.4 pg (28.0-33.3); Mean Corpuscular Volume 85.3 fL (83.0-100.0); Mean Platelet Volume 9.3 fL (9.4-12.4); Monocytes # 0.8 K/mcL (0.0-1.3); Monocytes % 4.2 %; Neutrophils # 13.6 K/mcL (1.6-8.9); Platelet Count 106 K/mcL (140-400); Red Blood Count 4.55 M/mcL (3.82-4.97); Red Cell Distribution Width 19.9 % (11.5-14.5); Segmented Neutrophils % 75.9 %
[2022-01-11 06:35] LABS: Alanine Aminotransferase 31 Units/L (7-52); Albumin 2.3 g/dL (3.5-5.7); Albumin/Globulin Ratio 1.2 (1.1-2.2); Alkaline Phosphatase 180 Units/L (34-104); Aspartate Amino Transferase 72 Units/L (13-39); BUN/Creatinine Ratio 50 (6-26); Blood Urea Nitrogen 20 mg/dL (8-23); Calcium 7.7 mg/dL (8.6-10.3); Carbon Dioxide 32 mEq/L (23-29); Chloride 96 mEq/L (98-107); Globulin 1.9 g/dL (2.4-3.5); Glucose 89 mg/dL (70-105); Magnesium 2.1 mg/dL (1.6-2.6); Osmolality,Calculated 286 (280-300); Phosphorous 2.3 mg/dL (2.7-4.5); Potassium 4.3 mEq/L (3.5-5.1); Sodium 137 mEq/L (136-145); Total Protein 4.2 g/dL (6.4-8.9)
[2022-01-11] MEDS: Heparin 25,000UNIT/250ML 1/2NS 25,000 UNIT/250 ML IV.SOLN IVC SCH ×2 (07:36→17:44)
[2022-01-11] MEDS: Magnesium Oxide 400 MG TABLET PO SCH ×2 (08:30→20:56)
[2022-01-11] MEDS: Nystatin POWDER 30 GM BOTTLE TP SCH ×2 (08:33→20:57)
[2022-01-11] MEDS ORDERED: Albumin 25% 12.5gm/50mL 12.5 GM/50 ML IV.SOLN IVPB ONE (08:51)
[2022-01-11] MEDS: Insulin LISPRO 300 UNITS/3 ML VIAL SUBQ SCH ×4 (08:57→20:29)
[2022-01-11] MEDS ORDERED: Furosemide 40 MG/4 ML VIAL IVP SCH (09:00)
[2022-01-11] MEDS: Norepinephrine 4 MG/254 ML IV.SOLN IVC SCH ×2 (09:53→18:39)
[2022-01-11] MEDS ORDERED: Calcium Gluconate 1gm/50mL 1 GM/50 ML BAG IVPB PRN (11:03)
[2022-01-11] MEDS: *HR* HYDROcodone/Acet 5/325 mg TABLET PO PRN ×2 (11:35→18:35)
[2022-01-11] MEDS: Pantoprazole 40 MG VIAL IVP SCH (13:56)
[2022-01-11] MEDS: Furosemide 240 MG in 0.9 % Sodium Chloride 96 ML IVC SCH (13:57)
[2022-01-11] MEDS: Furosemide 40 MG/4 ML VIAL IVP SCH ×2 (15:28→20:56)
[2022-01-11] MEDS ORDERED: *HR* HYDROcodone/Acet 5/325 mg TABLET ONE (18:01)
[2022-01-11] MEDS ORDERED: Norepinephrine 4 MG/254 ML IV.SOLN IVC ONE (18:16)
[2022-01-11] MEDS: Insulin DETEMIR 100 UNIT/ML X5UNITS SUBQ SCH (20:56)
[2022-01-11] MEDS: *HR* Amiodarone 200 MG TABLET PO SCH (20:57)
[2022-01-11 21:17] LABS: BUN/Creatinine Ratio 46 (6-26); Blood Urea Nitrogen 18 mg/dL (8-23); Calcium 7.6 mg/dL (8.6-10.3); Carbon Dioxide 35 mEq/L (23-29); Chloride 98 mEq/L (98-107); Glucose 81 mg/dL (70-105); Osmolality,Calculated 287 (280-300); Potassium 3.9 mEq/L (3.5-5.1); Sodium 138 mEq/L (136-145)
[2022-01-12] MEDS: Ipratropium/Albuterol Neb 3 ML IH SCH ×6 (00:22→20:07)
[2022-01-12] MEDS: Piperacillin/Tazobactam 3.375 GM in 0.9 % Sodium Chloride Mini Bag 100 ML IVPB SCH ×4 (01:17→23:40)
[2022-01-12] MEDS: Furosemide 240 MG in 0.9 % Sodium Chloride 96 ML IVC SCH (01:21)
[2022-01-12] MEDS: Heparin 25,000UNIT/250ML 1/2NS 25,000 UNIT/250 ML IV.SOLN IVC SCH (03:19)
[2022-01-12] MEDS: *HR* HYDROcodone/Acet 5/325 mg TABLET PO PRN ×2 (03:20→18:40)
[2022-01-12 04:13] LABS: Basophils % 0.7 %; Hemoglobin 12.5 g/dL (11.5-15.4)
[2022-01-12 04:15] LABS: Basophils # 0.1 K/mcL (0.0-0.2); Eosinophils # 0.4 K/mcL (0.0-0.6); Eosinophils % 3.3 %; Hematocrit 37.4 % (35.3-44.9); Immature Granulocytes % 1.9 % (0-4); Immature Platelets 3.2 % (1.1-6.1); Lymphocytes # 2.2 K/mcL (0.6-4.6); Mean Corpuscular HGB Conc 33.4 g/dL (31.6-35.5); Mean Corpuscular Hemoglobin 28.5 pg (28.0-33.3); Mean Corpuscular Volume 85.2 fL (83.0-100.0); Mean Platelet Volume 9.8 fL (9.4-12.4); Monocytes # 0.4 K/mcL (0.0-1.3); Monocytes % 3.5 %; Nucleated Red Blood Cells 0.2 /100 WBC (0); Red Blood Count 4.39 M/mcL (3.82-4.97); Red Cell Distribution Width 20.1 % (11.5-14.5); Segmented Neutrophils % 72.6 %; White Blood Count 12.4 K/mcL (4.3-11.1)
[2022-01-12 04:19] LABS: Platelet Count 89 K/mcL (140-400)
[2022-01-12 04:31] LABS: BUN/Creatinine Ratio 45 (6-26); Blood Urea Nitrogen 19 mg/dL (8-23); Calcium 7.9 mg/dL (8.6-10.3); Carbon Dioxide 35 mEq/L (23-29); Chloride 95 mEq/L (98-107); Glucose 62 mg/dL (70-105); Osmolality,Calculated 286 (280-300); Potassium 3.7 mEq/L (3.5-5.1); Sodium 138 mEq/L (136-145)
[2022-01-12] MEDS: Insulin LISPRO 300 UNITS/3 ML VIAL SUBQ SCH ×4 (08:10→20:29)
[2022-01-12] MEDS: *HR* Dextrose 50 % in Water (Syg) 50 ML SYRINGE IVP PRN ×2 (08:35→12:09)
[2022-01-12] MEDS: Albumin 25% 12.5gm/50mL 12.5 GM/50 ML IV.SOLN IVPB SCH ×3 (08:44→23:39)
[2022-01-12] MEDS: *HR* Amiodarone 200 MG TABLET PO SCH ×2 (08:45→20:51)
[2022-01-12] MEDS: Magnesium Oxide 400 MG TABLET PO SCH ×2 (08:45→20:52)
[2022-01-12] MEDS: Pantoprazole 40 MG VIAL IVP SCH (08:58)
[2022-01-12] MEDS: Furosemide 40 MG/4 ML VIAL IVP SCH ×3 (08:58→20:51)
[2022-01-12] MEDS ORDERED: Insulin DETEMIR 100 UNIT/ML X5UNITS SUBQ SCH (09:00)
[2022-01-12] MEDS: Nystatin POWDER 30 GM BOTTLE TP SCH ×2 (09:08→20:52)
[2022-01-12 11:35] LABS: ABG Base Excess 5 mEq/L (-2 to 3); ABG HCO3 31 mEq/L (21-27); ABG Oxygen Saturation 93 % (95-98); ABG PCO2 51 mmHg (35-45); ABG PH 7.39 pH Units (7.32-7.45); ABG PO2 67 mmHg (85-104); ABG TCO2 33 mEq/L (20-26)
[2022-01-12] MEDS: Norepinephrine 4 MG/254 ML IV.SOLN IVC SCH ×2 (12:13→20:29)
[2022-01-12 18:06] LABS: BUN/Creatinine Ratio 46 (6-26); Blood Urea Nitrogen 19 mg/dL (8-23); Calcium 7.9 mg/dL (8.6-10.3); Carbon Dioxide 33 mEq/L (23-29); Chloride 97 mEq/L (98-107); Glucose 88 mg/dL (70-105); Osmolality,Calculated 286 (280-300); Phosphorous 2.6 mg/dL (2.7-4.5); Potassium 3.9 mEq/L (3.5-5.1); Sodium 137 mEq/L (136-145)
[2022-01-13] MEDS: Ipratropium/Albuterol Neb 3 ML IH SCH ×6 (00:07→20:12)
[2022-01-13 04:07] LABS: Nucleated Red Blood Cells 0.3 /100 WBC (0); Red Cell Distribution Width 20.3 % (11.5-14.5)
[2022-01-13 04:09] LABS: Basophils # 0.1 K/mcL (0.0-0.2); Basophils % 0.9 %; Eosinophils # 0.2 K/mcL (0.0-0.6); Eosinophils % 1.6 %; Hematocrit 33.7 % (35.3-44.9); Hemoglobin 11.2 g/dL (11.5-15.4); Immature Granulocytes % 2.7 % (0-4); Immature Platelets 3.9 % (1.1-6.1); Lymphocytes # 2.6 K/mcL (0.6-4.6); Lymphocytes % 22.2 %; Mean Corpuscular HGB Conc 33.2 g/dL (31.6-35.5); Mean Corpuscular Hemoglobin 28.4 pg (28.0-33.3); Mean Corpuscular Volume 85.3 fL (83.0-100.0); Mean Platelet Volume 9.4 fL (9.4-12.4); Monocytes # 0.5 K/mcL (0.0-1.3); Monocytes % 4.6 %; Neutrophils # 7.9 K/mcL (1.6-8.9); Red Blood Count 3.95 M/mcL (3.82-4.97); White Blood Count 11.6 K/mcL (4.3-11.1)
[2022-01-13 04:13] LABS: Platelet Count 84 K/mcL (140-400)
[2022-01-13 04:27] LABS: BUN/Creatinine Ratio 45 (6-26); Blood Urea Nitrogen 21 mg/dL (8-23); Calcium 8.3 mg/dL (8.6-10.3); Carbon Dioxide 35 mEq/L (23-29); Chloride 97 mEq/L (98-107); Glucose 75 mg/dL (70-105); Osmolality,Calculated 284 (280-300); Phosphorous 2.7 mg/dL (2.7-4.5); Sodium 136 mEq/L (136-145)
[2022-01-13] MEDS: Heparin 25,000UNIT/250ML 1/2NS 25,000 UNIT/250 ML IV.SOLN IVC SCH (05:50)
[2022-01-13] MEDS: Furosemide 240 MG in 0.9 % Sodium Chloride 96 ML IVC SCH (05:55)
[2022-01-13] MEDS: *HR* Dextrose 50 % in Water (Syg) 50 ML SYRINGE IVP PRN (08:24)
[2022-01-13] MEDS: Magnesium Oxide 400 MG TABLET PO SCH ×2 (08:45→20:14)
[2022-01-13] MEDS: *HR* Amiodarone 200 MG TABLET PO SCH ×2 (08:45→20:14)
[2022-01-13] MEDS: Furosemide 40 MG/4 ML VIAL IVP SCH ×2 (08:56→16:26)
[2022-01-13] MEDS: Pantoprazole 40 MG VIAL IVP SCH (08:56)
[2022-01-13] MEDS: Piperacillin/Tazobactam 3.375 GM in 0.9 % Sodium Chloride Mini Bag 100 ML IVPB SCH ×3 (09:03→23:10)
[2022-01-13] MEDS: Insulin LISPRO 300 UNITS/3 ML VIAL SUBQ SCH ×4 (09:07→20:13)
[2022-01-13] MEDS: Norepinephrine 4 MG/254 ML IV.SOLN IVC SCH ×5 (09:07→22:27)
[2022-01-13] MEDS: Nystatin POWDER 30 GM BOTTLE TP SCH ×2 (09:08→20:15)
[2022-01-13] MEDS: Albumin 25% 12.5gm/50mL 12.5 GM/50 ML IV.SOLN IVPB SCH ×3 (09:10→23:10)
[2022-01-13] MEDS: Dexmedetomidine HCl 400 MCG/100 ML MLS IVC SCH ×3 (09:40→21:30)
[2022-01-13 11:12] LABS: Magnesium 1.9 mg/dL (1.6-2.6)
[2022-01-13] MEDS ORDERED: *HR* OxyCODONE Immed Rel 5 MG TABLET PO ONE (11:47)
[2022-01-13] MEDS ORDERED: Morphine Sulfate Oral CONC 10 MG/0.5 ML ORAL.SYG SL PRN (11:51)
[2022-01-13] MEDS ORDERED: Morphine Sulfate 2 MG/ML SYRINGE IVP PRN (15:01)
[2022-01-13] MEDS ORDERED: Morphine Sulfate 2 MG/ML SYRINGE IVP ONE (15:01)
[2022-01-13] MEDS ORDERED: metOLazone 2.5 MG TABLET PO ONE (16:30)
[2022-01-13] MEDS: *HR* Digoxin 0.125 MG TABLET PO SCH (16:37)
[2022-01-14] MEDS: Ipratropium/Albuterol Neb 3 ML IH SCH ×7 (00:11→23:21)
[2022-01-14] MEDS: Dexmedetomidine HCl 400 MCG/100 ML MLS IVC SCH ×7 (00:29→21:44)
[2022-01-14] MEDS: Insulin LISPRO 300 UNITS/3 ML VIAL SUBQ SCH ×6 (00:31→20:36)
[2022-01-14] MEDS: Furosemide 240 MG in 0.9 % Sodium Chloride 96 ML IVC SCH ×2 (02:15→21:47)
[2022-01-14] MEDS: Norepinephrine 4 MG/254 ML IV.SOLN IVC SCH ×3 (02:15→19:10)
[2022-01-14 02:58] LABS: Basophils % 0.2 %; Eosinophils # 0.1 K/mcL (0.0-0.6); Eosinophils % 0.5 %; Hematocrit 31.1 % (35.3-44.9); Hemoglobin 10.2 g/dL (11.5-15.4); Immature Granulocytes % 4.8 % (0-4); Lymphocytes # 3.8 K/mcL (0.6-4.6); Lymphocytes % 22.9 %; Mean Corpuscular HGB Conc 32.8 g/dL (31.6-35.5); Mean Corpuscular Hemoglobin 28.6 pg (28.0-33.3); Mean Corpuscular Volume 87.1 fL (83.0-100.0); Mean Platelet Volume 10.1 fL (9.4-12.4); Monocytes # 0.9 K/mcL (0.0-1.3); Monocytes % 5.4 %; Nucleated Red Blood Cells 0.5 /100 WBC (0); Platelet Count 116 K/mcL (140-400); Red Blood Count 3.57 M/mcL (3.82-4.97); Red Cell Distribution Width 20.9 % (11.5-14.5); Segmented Neutrophils % 66.2 %; White Blood Count 16.6 K/mcL (4.3-11.1)
[2022-01-14 03:20] LABS: Phosphorous 2.7 mg/dL (2.7-4.5)
[2022-01-14] MEDS: Piperacillin/Tazobactam 3.375 GM in 0.9 % Sodium Chloride Mini Bag 100 ML IVPB SCH ×2 (10:01→17:54)
[2022-01-14] MEDS: Nystatin POWDER 30 GM BOTTLE TP SCH ×2 (10:12→20:36)
[2022-01-14] MEDS: *HR* Amiodarone 200 MG TABLET PO SCH ×2 (10:12→20:36)
[2022-01-14] MEDS: Magnesium Oxide 400 MG TABLET PO SCH ×2 (10:13→20:36)
[2022-01-14] MEDS: Pantoprazole 40 MG VIAL IVP SCH (10:36)
[2022-01-14] MEDS: Heparin 25,000UNIT/250ML 1/2NS 25,000 UNIT/250 ML IV.SOLN IVC SCH ×3 (11:13→20:37)
[2022-01-14 11:31] LABS: BUN/Creatinine Ratio 41 (6-26); Blood Urea Nitrogen 18 mg/dL (8-23); Calcium 8.1 mg/dL (8.6-10.3); Carbon Dioxide 35 mEq/L (23-29); Chloride 100 mEq/L (98-107); Glucose 123 mg/dL (70-105); Osmolality,Calculated 297 (280-300); Potassium 3.3 mEq/L (3.5-5.1); Sodium 142 mEq/L (136-145)
[2022-01-14] MEDS: *HR* Digoxin 0.125 MG TABLET PO SCH (12:53)
[2022-01-15] MEDS: Dexmedetomidine HCl 400 MCG/100 ML MLS IVC SCH ×4 (01:01→13:28)
[2022-01-15] MEDS: Piperacillin/Tazobactam 3.375 GM in 0.9 % Sodium Chloride Mini Bag 100 ML IVPB SCH ×2 (01:02→08:50)
[2022-01-15] MEDS: Insulin LISPRO 300 UNITS/3 ML VIAL SUBQ SCH ×4 (01:05→11:55)
[2022-01-15] MEDS: Ipratropium/Albuterol Neb 3 ML IH SCH ×4 (03:57→15:50)
[2022-01-15 04:14] LABS: Basophils % 0.9 %; Immature Granulocytes % 2.3 % (0-4); Nucleated Red Blood Cells 0.2 /100 WBC (0)
[2022-01-15 04:16] LABS: Basophils # 0.1 K/mcL (0.0-0.2); Eosinophils # 0.3 K/mcL (0.0-0.6); Eosinophils % 1.9 %; Hematocrit 36.5 % (35.3-44.9); Hemoglobin 12.1 g/dL (11.5-15.4); Immature Platelets 2.9 % (1.1-6.1); Lymphocytes # 2.6 K/mcL (0.6-4.6); Mean Corpuscular HGB Conc 33.2 g/dL (31.6-35.5); Mean Corpuscular Hemoglobin 28.5 pg (28.0-33.3); Mean Corpuscular Volume 86.1 fL (83.0-100.0); Mean Platelet Volume 9.1 fL (9.4-12.4); Monocytes # 0.6 K/mcL (0.0-1.3); Monocytes % 4.6 %; Neutrophils # 9.8 K/mcL (1.6-8.9); Platelet Count 112 K/mcL (140-400); Red Blood Count 4.24 M/mcL (3.82-4.97); Red Cell Distribution Width 21.3 % (11.5-14.5); Segmented Neutrophils % 71.3 %; White Blood Count 13.7 K/mcL (4.3-11.1)
[2022-01-15 04:33] LABS: BUN/Creatinine Ratio 44 (6-26); Blood Urea Nitrogen 17 mg/dL (8-23); Calcium 8.1 mg/dL (8.6-10.3); Carbon Dioxide 35 mEq/L (23-29); Chloride 99 mEq/L (98-107); Glucose 154 mg/dL (70-105); Osmolality,Calculated 303 (280-300); Sodium 144 mEq/L (136-145)
[2022-01-15] MEDS ORDERED: Magnesium Sulfate 1 GM/102 ML PIGGYBACK IVPB ONE (08:32)
[2022-01-15] MEDS: *HR* Amiodarone 200 MG TABLET PO SCH (08:37)
[2022-01-15] MEDS: Magnesium Oxide 400 MG TABLET PO SCH (08:38)
[2022-01-15] MEDS: *HR* Digoxin 0.125 MG TABLET PO SCH (08:39)
[2022-01-15] MEDS: Pantoprazole 40 MG VIAL IVP SCH (08:50)
[2022-01-15] MEDS ORDERED: Amiodarone Premix 360 MG/200 ML BAG IVC SCH (09:15)
[2022-01-15] MEDS ORDERED: *HR* Metoprolol 5 MG/5 ML VIAL IVP SCH (09:15)
[2022-01-15] MEDS: Nystatin POWDER 30 GM BOTTLE TP SCH (09:52)
[2022-01-15 13:21] VITALS: BP 97/77; PULSE 104; O2SAT 95
[2022-01-15] MEDS: *HR* LORazepam 2 MG/ML VIAL IVP PRN ×2 (14:59→15:44)
[2022-01-15] MEDS: Morphine Sulfate 2 MG/ML SYRINGE IVP PRN ×2 (14:59→15:33)
[2022-01-15] MEDS ORDERED: Morphine Sulfate 2 MG/ML SYRINGE IVP ONE (15:32)
[2022-01-15] MEDS ORDERED: *HR* LORazepam 2 MG/ML VIAL IVP ONE (15:33)
[2022-01-15 16:31] VITALS: TEMP 96.9
== END 2022-01-15 15:51 | disposition expired | DRG 698 ==
LOC: 3BNU 20:29 → EMEROOARM 20:29 → SUATTDRO 01-02 06:09 → 2ANU 01-02 06:11 → SUATTDRO 01-03 13:31 → 2NNU 01-07 18:01 → ICNU 01-09 13:47
PROVIDERS: ADMIT Internal Medicine; ATTEND General Practice